=== PATIENT | male | born 1940 | race African-American/Black ===

== ENCOUNTER 2023-11-09 10:26 | Inpatient (IN) | payer MEDICARE, OTHER ==
[~2023-11-09] VITALS: Ht 167.6 cm; Wt 88.0 kg
[2023-11-09] MEDS: FUROSEMIDE 40 MG/4 ML VIAL IV ONE (11:00)
[2023-11-09] MEDS ORDERED: FUROSEMIDE 40 MG/4 ML VIAL ONE (11:00)
[2023-11-09 11:24] LABS: INR 1.17 (0.91-1.10); PROTHROMBIN TIME 12.3 SECS (9.2-11.1)
[2023-11-09 11:29] LABS: ALANINE AMINOTRANSFERASE 134 U/L (12-78); ALBUMIN 2.9 g/dL (3.4-5.0); ALKALINE PHOSPHATASE 187 U/L (46-116); ASPARTATE AMINOTRANSFERASE 90 U/L (15-37); BILIRUBIN,DIRECT 0.1 mg/dL (0.0-0.2); BILIRUBIN,TOTAL 0.3 mg/dL (0.2-1.0); CALCIUM, SERUM 7.8 mg/dL (8.5-10.1); CARBON DIOXIDE 21 mmol/L (21-32); CHLORIDE 111 mmol/L (98-107); CREATININE 4.1 mg/dL (0.6-1.3); GLUCOSE 190 mg/dL (74-106); NT-PRO BNP 4301 pg/mL (0-125); POTASSIUM 5.9 mmol/L (3.5-5.1); SODIUM SERUM 143 mmol/L (136-145); TOTAL PROTEIN, SERUM 6.8 g/dL (6.4-8.2)
[2023-11-09 11:30] LABS: UREA NITROGEN, BLOOD 94 mg/dL (7-18)
[2023-11-09 11:31] LABS: BASOPHILS % (AUTO) 0.1 % (0.0-2.0); EOSINOPHILS # (AUTO) 0.4 K/uL (0.0-0.7); EOSINOPHILS % (AUTO) 6.8 % (0.0-6.0); HEMATOCRIT 25 % (39-51); HEMOGLOBIN 7.9 g/dL (13.5-17.5); LYMPHOCYTES # (AUTO) 0.7 K/uL (0.8-4.8); LYMPHOCYTES % (AUTO) 11.3 % (20.0-44.0); MEAN CORPUSCULAR HEMOGLOBIN 27 PG (26.0-33.0); MEAN CORPUSCULAR HGB CONC 32 g/dl (31.0-36.0); MEAN CORPUSCULAR VOLUME 85 fL (80-96); MONOCYTES # (AUTO) 0.6 K/uL (0.1-1.30); MONOCYTES % (AUTO) 9.4 % (2.0-12.0); NEUTROPHILS # (AUTO) 4.3 K/uL (1.8-8.9); NEUTROPHILS % (AUTO) 72.4 % (43.0-81.0); PLATELET COUNT (AUTO) 167 K/uL (150-450); RED BLOOD CELL COUNT(AUTO) 2.93 MIL/uL (4.5-6.0); RED CELL DISTRIBUTION WIDTH 18.8 % (11.5-15.0); WHITE BLOOD COUNT (AUTO) 5.9 K/uL (4.3-11.0)
[2023-11-09 12:28] LABS: APPEARANCE,URINE CLOUDY (CLEAR); BILIRUBIN,URINE NEGATIVE (NEGATIVE); BLOOD, URINE 3+ Ery/uL (NEGATIVE); COLOR,URINE DARK YELLOW (YELLOW); KETONES,URINE NEGATIVE (NEGATIVE); LEUKOCYTE ESTERASE ,URINE 3+ (NEGATIVE); NITRITE, URINE POSITIVE (NEGATIVE); PH,URINE 8.5 (5.0-8.0); PROTEIN,URINE 2+ mg/dl (NEGATIVE); UGLUCOSE NEGATIVE (NEGATIVE); UROBILINOGEN,URINE 0.2 EU/dL (0.2)
[2023-11-09 12:33] LABS: ADD URINE CULTURE YES; BACTERIA,URINE Many /HPF (None Seen); SQUAMOUS EPITHELIAL CELL,UR Rare /HPF (None Seen); WBC,URINE 51-80 /HPF (0-3)
[2023-11-09] MEDS ORDERED: FOLI0.8T2 PO (13:41)
[2023-11-09] MEDS ORDERED: APIX2.5T PO (13:41)
[2023-11-09] MEDS ORDERED: SITA25TA PO (13:41)
[2023-11-09] MEDS ORDERED: FINA5TAB11 PO (13:41)
[2023-11-09] MEDS ORDERED: AMLO-212 PO (13:41)
[2023-11-09] MEDS ORDERED: PANT20TA17 PO (13:41)
[2023-11-09] MEDS ORDERED: ATOR40TA PO (13:41)
[2023-11-09] MEDS ORDERED: CHOL100043 PO (13:41)
[2023-11-09] MEDS ORDERED: CARV6.252 PO (13:41)
[2023-11-09] MEDS ORDERED: NUT.237L85 PO (13:41)
[2023-11-09] MEDS ORDERED: OXYB5TAB16 PO (13:41)
[2023-11-09] MEDS ORDERED: NATE60TA4 PO (13:41)
[2023-11-09] MEDS ORDERED: FURO20TA4 PO (13:41)
[2023-11-09] MEDS ORDERED: PREG75CA PO (13:41)
[2023-11-09] MEDS ORDERED: POLY17PO29 PO (13:41)
[2023-11-09] MEDS ORDERED: ACET325T53 PO (13:41)
[2023-11-09] MEDS ORDERED: AMIO200T5 PO (13:41)
[2023-11-09] MEDS ORDERED: ESCI5TAB PO (13:41)
[2023-11-09] MEDS ORDERED: ONDANSETRON HCL/PF 4 MG/2 ML VIAL IVP PRN (15:00)
[2023-11-09] MEDS ORDERED: Z GUARD REMEDY 4 OZ OINT TP PRN (15:00)
[2023-11-09] MEDS ORDERED: ACETAMINOPHEN 325 MG TABLET PO PRN (15:00)
[2023-11-09] MEDS ORDERED: SODIUM POLYSTYRENE SULFONATE 15 G/60 ML BOTTLE ONE (15:17)
[2023-11-09] MEDS: SODIUM POLYSTYRENE SULFONATE 15 G/60 ML BOTTLE PO ONE (15:21)
[2023-11-09] MEDS: CEFTRIAXONE 1 G in IV D5W 50 ML IV SCH (16:46)
[2023-11-09] MEDS: ESCITALOPRAM OXALATE (10 MG) 10 MG TABLET PO SCH (16:47)
[2023-11-09] MEDS: OXYBUTYNIN CHLORIDE 5 MG TABLET PO SCH (16:47)
[2023-11-09] MEDS: PREGABALIN 25 MG CAPSULE PO SCH (16:47)
[2023-11-09] MEDS: APIXABAN 2.5 MG TABLET PO SCH (16:49)
[2023-11-09] MEDS: BLOOD SUGAR DIAGNOSTIC 1 EACH STRIP IN SCH (17:25)
[2023-11-09] MEDS: INSULIN REGULAR, HUMAN 100 UNIT/ML 3 ML VIAL SQ PRN (17:25)
[2023-11-09 19:01] LABS: CALCIUM, SERUM 7.8 mg/dL (8.5-10.1); CARBON DIOXIDE 22 mmol/L (21-32); CHLORIDE 111 mmol/L (98-107); CREATININE 4.1 mg/dL (0.6-1.3); GLUCOSE 196 mg/dL (74-106); POTASSIUM 5.6 mmol/L (3.5-5.1); SODIUM SERUM 143 mmol/L (136-145)
[2023-11-09 19:10] LABS: UREA NITROGEN, BLOOD 93 mg/dL (7-18)
[2023-11-09] MEDS: FINASTERIDE (5 MG) 5 MG TABLET PO SCH (21:11)
[2023-11-09] MEDS: ATORVASTATIN 40 MG TABLET PO SCH (21:11)
[2023-11-10] VITALS: BP 140/69; TEMP 98.2; O2SAT 96
[2023-11-10] MEDS: DEXTROSE 50%-WATER 50 ML DISP.SYRIN IV PRN (06:14)
[2023-11-10 06:58] LABS: BASOPHILS % (AUTO) 0.4 % (0.0-2.0); EOSINOPHILS # (AUTO) 0.5 K/uL (0.0-0.7); EOSINOPHILS % (AUTO) 10.2 % (0.0-6.0); HEMATOCRIT 25 % (39-51); LYMPHOCYTES # (AUTO) 0.6 K/uL (0.8-4.8); LYMPHOCYTES % (AUTO) 12.3 % (20.0-44.0); MEAN CORPUSCULAR HEMOGLOBIN 27 PG (26.0-33.0); MEAN CORPUSCULAR HGB CONC 32 g/dl (31.0-36.0); MEAN CORPUSCULAR VOLUME 85 fL (80-96); MONOCYTES # (AUTO) 0.6 K/uL (0.1-1.30); MONOCYTES % (AUTO) 10.8 % (2.0-12.0); NEUTROPHILS # (AUTO) 3.4 K/uL (1.8-8.9); NEUTROPHILS % (AUTO) 66.3 % (43.0-81.0); PLATELET COUNT (AUTO) 170 K/uL (150-450); RED BLOOD CELL COUNT(AUTO) 2.94 MIL/uL (4.5-6.0); RED CELL DISTRIBUTION WIDTH 18.9 % (11.5-15.0); WHITE BLOOD COUNT (AUTO) 5.1 K/uL (4.3-11.0)
[2023-11-10 07:36] LABS: CHOLESTEROL 104 mg/dL (<200); HDL CHOLESTEROL 61 mg/dL (40-60); LDL 34 mg/dL (0-99); THYROID STIMULATING HORMONE 2.894 uIU/mL (0.358-3.74); TRIGLYCERIDES 26 mg/dL (30-150)
[2023-11-10 07:41] LABS: ALANINE AMINOTRANSFERASE 120 U/L (12-78); ALBUMIN 2.9 g/dL (3.4-5.0); ALKALINE PHOSPHATASE 157 U/L (46-116); ASPARTATE AMINOTRANSFERASE 64 U/L (15-37); BILIRUBIN,TOTAL 0.2 mg/dL (0.2-1.0); CALCIUM, SERUM 7.8 mg/dL (8.5-10.1); CARBON DIOXIDE 18 mmol/L (21-32); CHLORIDE 112 mmol/L (98-107); MAGNESIUM 3.4 mg/dL (1.8-2.4); PHOSPHORUS 6.4 mg/dL (2.5-4.9); POTASSIUM 5.7 mmol/L (3.5-5.1); SODIUM SERUM 143 mmol/L (136-145); TOTAL PROTEIN, SERUM 6.9 g/dL (6.4-8.2)
[2023-11-10] MEDS: PANTOPRAZOLE 40 MG TABLET.DR PO SCH (07:41)
[2023-11-10 07:43] LABS: GLUCOSE 44 mg/dL (74-106); UREA NITROGEN, BLOOD 93 mg/dL (7-18)
[2023-11-10 07:54] LABS: IRON, SERUM 45 ug/dl (50-175); TOTAL IRON BINDING CAPACITY 226 ug/dl (250-450)
[2023-11-10] MEDS: POLYETHYLENE GLYCOL 3350 17 GM POWD.PACK PO SCH (08:52)
[2023-11-10] MEDS: CHOLECALCIFEROL 1,000 UNIT TABLET (VIT D3) PO SCH (08:52)
[2023-11-10] MEDS: VIT B CMPLX 3/FA/VIT C/BIOTIN 1 TAB TABLET PO SCH (08:52)
[2023-11-10] MEDS: AMLODIPINE BESYLATE 5 MG TABLET PO SCH (08:53)
[2023-11-10] MEDS: NEPRO VAN 237 ML CAN PO SCH (08:54)
[2023-11-10] MEDS: SODIUM POLYSTYRENE SULFONATE 15 G/60 ML BOTTLE PO ONE (09:36)
[2023-11-10] MEDS: CITRIC ACID/SODIUM CITRATE (BICITRA)15 ML UDC PO SCH (09:36)
[2023-11-10] MEDS: MORPHINE SULFATE INJ 2 MG/ML DISP.SYRIN IV ONE (12:01)
[2023-11-10 20:00] VITALS: BP 152/55; TEMP 98.4; O2SAT 94
[2023-11-10] MEDS: MUPIROCIN OINT 2% 22 GM TUBE NS SCH (20:24)
[2023-11-11] VITALS: BP 150/49; TEMP 98.6; O2SAT 94
[2023-11-11 04:00] VITALS: BP 147/55; TEMP 98.6; O2SAT 94
[2023-11-11 05:54] LABS: BASOPHILS % (AUTO) 0.6 % (0.0-2.0); EOSINOPHILS # (AUTO) 0.5 K/uL (0.0-0.7); EOSINOPHILS % (AUTO) 8.4 % (0.0-6.0); HEMATOCRIT 25 % (39-51); HEMOGLOBIN 7.7 g/dL (13.5-17.5); LYMPHOCYTES # (AUTO) 0.9 K/uL (0.8-4.8); LYMPHOCYTES % (AUTO) 16.1 % (20.0-44.0); MEAN CORPUSCULAR HEMOGLOBIN 27 PG (26.0-33.0); MEAN CORPUSCULAR HGB CONC 31 g/dl (31.0-36.0); MEAN CORPUSCULAR VOLUME 87 fL (80-96); MONOCYTES # (AUTO) 0.8 K/uL (0.1-1.30); MONOCYTES % (AUTO) 13.3 % (2.0-12.0); NEUTROPHILS # (AUTO) 3.5 K/uL (1.8-8.9); NEUTROPHILS % (AUTO) 61.6 % (43.0-81.0); PLATELET COUNT (AUTO) 177 K/uL (150-450); RED BLOOD CELL COUNT(AUTO) 2.87 MIL/uL (4.5-6.0); RED CELL DISTRIBUTION WIDTH 19.2 % (11.5-15.0); WHITE BLOOD COUNT (AUTO) 5.7 K/uL (4.3-11.0)
[2023-11-11 06:04] LABS: CREATINE KINASE, TOTAL 176 U/L (39-308)
[2023-11-11 06:58] LABS: ALANINE AMINOTRANSFERASE 119 U/L (12-78); ALBUMIN 2.7 g/dL (3.4-5.0); ALKALINE PHOSPHATASE 167 U/L (46-116); ASPARTATE AMINOTRANSFERASE 57 U/L (15-37); BILIRUBIN,TOTAL 0.2 mg/dL (0.2-1.0); CALCIUM, SERUM 7.6 mg/dL (8.5-10.1); CARBON DIOXIDE 24 mmol/L (21-32); CHLORIDE 112 mmol/L (98-107); CREATININE 3.7 mg/dL (0.6-1.3); GLUCOSE 87 mg/dL (74-106); PHOSPHORUS 5.4 mg/dL (2.5-4.9); POTASSIUM 4.9 mmol/L (3.5-5.1); SODIUM SERUM 145 mmol/L (136-145); TOTAL PROTEIN, SERUM 6.3 g/dL (6.4-8.2)
[2023-11-11 07:12] LABS: UREA NITROGEN, BLOOD 84 mg/dL (7-18)
[2023-11-11 08:00] VITALS: BP 151/72; TEMP 98.6; O2SAT 94
[2023-11-11 12:00] VITALS: BP 145/62; TEMP 97.7; O2SAT 94
[2023-11-11 12:08] LABS: HEPATITIS B CORE AB, IgM Negative (Negative); HEPATITIS B CORE AB, TOTAL Negative (Negative); HEPATITIS B SURFACE AB Non Reactive (.)
[2023-11-11 16:00] VITALS: BP 149/62; TEMP 97.8; O2SAT 94
[2023-11-11 20:00] VITALS: BP 175/87; TEMP 98.4; O2SAT 95
[2023-11-12] VITALS (7 sets, daily range): BP systolic 136–164; BP diastolic 56–78; TEMP 97.3–98.6; O2SAT 93–98
[2023-11-12 08:06] LABS: PTH, INTACT 117 pg/mL (15-65)
[2023-11-12 12:44] LABS: BASOPHILS % (AUTO) 0.4 % (0.0-2.0); EOSINOPHILS # (AUTO) 0.4 K/uL (0.0-0.7); EOSINOPHILS % (AUTO) 6.8 % (0.0-6.0); HEMATOCRIT 28 % (39-51); HEMOGLOBIN 8.1 g/dL (13.5-17.5); LYMPHOCYTES # (AUTO) 0.8 K/uL (0.8-4.8); LYMPHOCYTES % (AUTO) 12.5 % (20.0-44.0); MEAN CORPUSCULAR HEMOGLOBIN 27 PG (26.0-33.0); MEAN CORPUSCULAR HGB CONC 29 g/dl (31.0-36.0); MEAN CORPUSCULAR VOLUME 91 fL (80-96); MONOCYTES # (AUTO) 0.6 K/uL (0.1-1.30); MONOCYTES % (AUTO) 9.7 % (2.0-12.0); NEUTROPHILS # (AUTO) 4.2 K/uL (1.8-8.9); NEUTROPHILS % (AUTO) 70.6 % (43.0-81.0); PLATELET COUNT (AUTO) 121 K/uL (150-450); RED BLOOD CELL COUNT(AUTO) 3.04 MIL/uL (4.5-6.0)
[2023-11-12 12:52] LABS: CALCIUM, SERUM 7.5 mg/dL (8.5-10.1); CARBON DIOXIDE 25 mmol/L (21-32); CHLORIDE 104 mmol/L (98-107); CREATININE 2.4 mg/dL (0.6-1.3); GLUCOSE 136 mg/dL (74-106); MAGNESIUM 2.7 mg/dL (1.8-2.4); POTASSIUM 5.4 mmol/L (3.5-5.1); SODIUM SERUM 136 mmol/L (136-145); UREA NITROGEN, BLOOD 54 mg/dL (7-18)
[2023-11-13] VITALS: BP 149/63; TEMP 98.6; O2SAT 95
[2023-11-13 04:00] VITALS: BP 148/65; TEMP 98.1; O2SAT 97
[2023-11-13 08:00] VITALS: BP 96/75; TEMP 98.6; O2SAT 98
[2023-11-13 12:00] VITALS: BP 96/75; TEMP 98.6; O2SAT 98
[2023-11-13 13:59] LABS: BASOPHILS % (AUTO) 0.6 % (0.0-2.0); EOSINOPHILS # (AUTO) 0.7 K/uL (0.0-0.7); EOSINOPHILS % (AUTO) 9.2 % (0.0-6.0); HEMATOCRIT 26 % (39-51); HEMOGLOBIN 8.3 g/dL (13.5-17.5); MEAN CORPUSCULAR HEMOGLOBIN 27 PG (26.0-33.0); MEAN CORPUSCULAR HGB CONC 32 g/dl (31.0-36.0); MEAN CORPUSCULAR VOLUME 85 fL (80-96); MONOCYTES # (AUTO) 0.6 K/uL (0.1-1.30); NEUTROPHILS # (AUTO) 5.3 K/uL (1.8-8.9); NEUTROPHILS % (AUTO) 69.2 % (43.0-81.0); PLATELET COUNT (AUTO) 153 K/uL (150-450); RED BLOOD CELL COUNT(AUTO) 3.05 MIL/uL (4.5-6.0); RED CELL DISTRIBUTION WIDTH 19.5 % (11.5-15.0); WHITE BLOOD COUNT (AUTO) 7.7 K/uL (4.3-11.0)
[2023-11-13 14:29] LABS: CALCIUM, SERUM 7.8 mg/dL (8.5-10.1); CARBON DIOXIDE 26 mmol/L (21-32); CHLORIDE 104 mmol/L (98-107); CREATININE 2.4 mg/dL (0.6-1.3); GLUCOSE 158 mg/dL (74-106); MAGNESIUM 2.4 mg/dL (1.8-2.4); PHOSPHORUS 3.7 mg/dL (2.5-4.9); POTASSIUM 4.3 mmol/L (3.5-5.1); SODIUM SERUM 139 mmol/L (136-145); UREA NITROGEN, BLOOD 39 mg/dL (7-18)
[2023-11-13 16:00] VITALS: BP 175/59; TEMP 98.6; O2SAT 95
[2023-11-13] MEDS ORDERED: hydrALAZINE HCL IV 20 MG VIAL IV PRN ×2 (19:00)
[2023-11-13 20:00] VITALS: BP 152/77; TEMP 98.1; O2SAT 100
[2023-11-13] MEDS ORDERED: CEFOTAXIME SODIUM 1 G in IV D5W 50 ML IV SCH (23:30)
[2023-11-13] MEDS: CEFOTAXIME SODIUM 1 G in IV D5W 50 ML IV SCH (23:30)
[2023-11-14 04:00] VITALS: BP 144/75; TEMP 98.6; O2SAT 100
[2023-11-14 06:59] LABS: BASOPHILS % (AUTO) 0.5 % (0.0-2.0); EOSINOPHILS # (AUTO) 0.6 K/uL (0.0-0.7); EOSINOPHILS % (AUTO) 8.2 % (0.0-6.0); HEMATOCRIT 23 % (39-51); HEMOGLOBIN 7.5 g/dL (13.5-17.5); LYMPHOCYTES # (AUTO) 1.1 K/uL (0.8-4.8); LYMPHOCYTES % (AUTO) 14.6 % (20.0-44.0); MEAN CORPUSCULAR HEMOGLOBIN 27 PG (26.0-33.0); MEAN CORPUSCULAR HGB CONC 32 g/dl (31.0-36.0); MEAN CORPUSCULAR VOLUME 83 fL (80-96); MONOCYTES % (AUTO) 12.7 % (2.0-12.0); PLATELET COUNT (AUTO) 142 K/uL (150-450); RED BLOOD CELL COUNT(AUTO) 2.79 MIL/uL (4.5-6.0); RED CELL DISTRIBUTION WIDTH 18.9 % (11.5-15.0); WHITE BLOOD COUNT (AUTO) 7.8 K/uL (4.3-11.0)
[2023-11-14 07:09] LABS: CALCIUM, SERUM 8.1 mg/dL (8.5-10.1); CARBON DIOXIDE 26 mmol/L (21-32); CHLORIDE 107 mmol/L (98-107); CREATININE 1.9 mg/dL (0.6-1.3); GLUCOSE 77 mg/dL (74-106); MAGNESIUM 2.3 mg/dL (1.8-2.4); PHOSPHORUS 3.3 mg/dL (2.5-4.9); POTASSIUM 3.9 mmol/L (3.5-5.1); SODIUM SERUM 142 mmol/L (136-145); UREA NITROGEN, BLOOD 28 mg/dL (7-18)
[2023-11-14] MEDS: IV D5/ 0.9% NACL 1,000 ML IV PRN (09:19)
[2023-11-14] MEDS: CEFTAZIDIME 1 G in IV D5W 50 ML IV SCH (09:27)
[2023-11-14 10:07] LABS: *SPE ALBUMIN 2.9 g/dL (2.9-4.4); *SPE ALPHA-1-GLOBULIN 0.2 g/dL (0.0-0.4); *SPE ALPHA-2-GLOBULIN 0.7 g/dL (0.4-1.0); *SPE BETA GLOBULIN 0.8 g/dL (0.7-1.3); *SPE GLOBULIN, TOTAL 2.9 g/dL (2.2-3.9); *SPE M-SPIKE Not Observed g/dL (Not Observed); *SPE PROTEIN TOTAL 5.8 g/dL (6.0-8.5); *SPEGAMMA GLOBULIN 1.2 g/dL (0.4-1.8)
[2023-11-14 10:28] LABS: INR 1.23 (0.91-1.10); PARTIAL THROMBOPLASTIN TIME 38.7 SEC (24.3-34.3); PROTHROMBIN TIME 12.9 SECS (9.2-11.1)
[2023-11-14 12:00] VITALS: BP 177/90; TEMP 98.6; O2SAT 98
[2023-11-14] MEDS ORDERED: LIDOCAINE HCL/MPF 1% 30 ML VIAL IJ ONE (12:36)
[2023-11-14] MEDS ORDERED: HEPARIN SODIUM, PORCINE 1,000 UNIT/ML VIAL ONE (12:36)
[2023-11-14] MEDS ORDERED: IV SET PRIMARY PUMP SET 1 EA INFUS.SET MC ONE (13:00)
[2023-11-14] MEDS: CEFAZOLIN 2 GM in IV D5W 100 ML IV ONE (13:00)
[2023-11-14] MEDS: hydrALAZINE HCL IV 20 MG VIAL IV PRN (18:14)
[2023-11-14 20:00] VITALS: BP 160/69; TEMP 98.6; O2SAT 96
[2023-11-14] MEDS: ANCEF 1 GM/50 ML D5W IV SCH (20:55)
[2023-11-15 04:00] VITALS: BP 154/72; TEMP 98.4; O2SAT 97
[2023-11-15 07:22] LABS: BASOPHILS % (AUTO) 0.4 % (0.0-2.0); EOSINOPHILS # (AUTO) 0.7 K/uL (0.0-0.7); EOSINOPHILS % (AUTO) 10.5 % (0.0-6.0); HEMATOCRIT 22 % (39-51); HEMOGLOBIN 7.1 g/dL (13.5-17.5); LYMPHOCYTES # (AUTO) 0.8 K/uL (0.8-4.8); LYMPHOCYTES % (AUTO) 11.4 % (20.0-44.0); MEAN CORPUSCULAR HEMOGLOBIN 27 PG (26.0-33.0); MEAN CORPUSCULAR HGB CONC 32 g/dl (31.0-36.0); MEAN CORPUSCULAR VOLUME 83 fL (80-96); MONOCYTES # (AUTO) 0.8 K/uL (0.1-1.30); MONOCYTES % (AUTO) 10.8 % (2.0-12.0); NEUTROPHILS # (AUTO) 4.7 K/uL (1.8-8.9); NEUTROPHILS % (AUTO) 66.9 % (43.0-81.0); PLATELET COUNT (AUTO) 126 K/uL (150-450); RED BLOOD CELL COUNT(AUTO) 2.68 MIL/uL (4.5-6.0)
[2023-11-15 07:44] LABS: ALANINE AMINOTRANSFERASE 39 U/L (12-78); ALBUMIN 2.5 g/dL (3.4-5.0); ALKALINE PHOSPHATASE 131 U/L (46-116); ASPARTATE AMINOTRANSFERASE 23 U/L (15-37); BILIRUBIN,DIRECT 0.1 mg/dL (0.0-0.2); BILIRUBIN,TOTAL 0.3 mg/dL (0.2-1.0); CARBON DIOXIDE 26 mmol/L (21-32); CHLORIDE 108 mmol/L (98-107); CREATININE 2.1 mg/dL (0.6-1.3); GLUCOSE 127 mg/dL (74-106); MAGNESIUM 2.2 mg/dL (1.8-2.4); PHOSPHORUS 3.5 mg/dL (2.5-4.9); POTASSIUM 3.9 mmol/L (3.5-5.1); SODIUM SERUM 143 mmol/L (136-145); UREA NITROGEN, BLOOD 28 mg/dL (7-18)
[2023-11-15] MEDS: NEPRO VAN 237 ML CAN PO SCH (08:00)
[2023-11-15] MEDS: BENAZEPRIL HCL 10 MG TABLET PO SCH (08:12)
[2023-11-15] MEDS: AMLODIPINE BESYLATE 5 MG TABLET PO SCH (08:13)
[2023-11-15 12:00] VITALS: BP 152/63; TEMP 97.8; O2SAT 95
[2023-11-15 20:00] VITALS: BP 148/55; TEMP 98.8; O2SAT 94
[2023-11-16 04:00] VITALS: BP_SYST 134; BP_SYST 148; BP_DIAS 55; BP_DIAS 59; TEMP 98.2; TEMP 98.8; O2SAT 94; O2SAT 95
[2023-11-16 12:00] VITALS: BP 144/65; TEMP 98.3; O2SAT 95
[2023-11-16 20:00] VITALS: BP 143/65; TEMP 99; O2SAT 98
[2023-11-17] VITALS (8 sets, daily range): BP systolic 130–153; BP diastolic 57–77; TEMP 98–99.2; O2SAT 94–98
[2023-11-17 07:36] LABS: BASOPHILS % (AUTO) 0.6 % (0.0-2.0); EOSINOPHILS # (AUTO) 0.7 K/uL (0.0-0.7); EOSINOPHILS % (AUTO) 11.4 % (0.0-6.0); LYMPHOCYTES % (AUTO) 17.1 % (20.0-44.0); MEAN CORPUSCULAR HEMOGLOBIN 26 PG (26.0-33.0); MEAN CORPUSCULAR HGB CONC 32 g/dl (31.0-36.0); MEAN CORPUSCULAR VOLUME 83 fL (80-96); MONOCYTES # (AUTO) 0.7 K/uL (0.1-1.30); MONOCYTES % (AUTO) 11.6 % (2.0-12.0); NEUTROPHILS # (AUTO) 3.5 K/uL (1.8-8.9); NEUTROPHILS % (AUTO) 59.3 % (43.0-81.0); PLATELET COUNT (AUTO) 106 K/uL (150-450); RED CELL DISTRIBUTION WIDTH 18.6 % (11.5-15.0); WHITE BLOOD COUNT (AUTO) 5.9 K/uL (4.3-11.0)
[2023-11-17 07:50] LABS: HEMOGLOBIN 6.3 g/dL (13.5-17.5)
[2023-11-17 07:51] LABS: HEMATOCRIT 20 % (39-51)
[2023-11-17 11:32] LABS: ANISOCYTOSIS 1+; BASOPHILS % (MANUAL) 0 % (0.0-2.0); EOSINOPHILS % (MANUAL) 8 % (0-4); HYPOCHROMASIA 1+; LYMPHOCYTES % (MANUAL) 15 % (16-48); MONOCYTES % (MANUAL) 12 % (0-11.0); NEUTROPHILS % (MANUAL) 65 (42-76); PLATELET ESTIMATE DECREASED
[2023-11-18 00:11] VITALS: BP 142/63; TEMP 98.4
[2023-11-18 01:25] VITALS: BP 141/65; TEMP 98.4
[2023-11-18 04:00] VITALS: BP 154/60; TEMP 97.5; O2SAT 96
[2023-11-18 07:28] LABS: BASOPHILS % (AUTO) 0.7 % (0.0-2.0); EOSINOPHILS # (AUTO) 0.9 K/uL (0.0-0.7); EOSINOPHILS % (AUTO) 11.4 % (0.0-6.0); HEMATOCRIT 26 % (39-51); HEMOGLOBIN 8.5 g/dL (13.5-17.5); LYMPHOCYTES # (AUTO) 1.3 K/uL (0.8-4.8); LYMPHOCYTES % (AUTO) 17.4 % (20.0-44.0); MEAN CORPUSCULAR HEMOGLOBIN 28 PG (26.0-33.0); MEAN CORPUSCULAR HGB CONC 33 g/dl (31.0-36.0); MEAN CORPUSCULAR VOLUME 85 fL (80-96); MONOCYTES % (AUTO) 12.6 % (2.0-12.0); NEUTROPHILS # (AUTO) 4.4 K/uL (1.8-8.9); NEUTROPHILS % (AUTO) 57.9 % (43.0-81.0); PLATELET COUNT (AUTO) 122 K/uL (150-450); RED BLOOD CELL COUNT(AUTO) 3.08 MIL/uL (4.5-6.0); RED CELL DISTRIBUTION WIDTH 18.5 % (11.5-15.0); WHITE BLOOD COUNT (AUTO) 7.6 K/uL (4.3-11.0)
[2023-11-18 08:00] VITALS: BP 158/81; TEMP 97.9; O2SAT 97
[2023-11-18 16:00] VITALS: BP 144/71; TEMP 97.8; TEMP 98.1; O2SAT 98
[2023-11-18 20:00] VITALS: BP 168/72; TEMP 97.9; O2SAT 100
[2023-11-19 04:00] VITALS: BP 153/65; TEMP 97.5; O2SAT 100
[2023-11-19 08:00] VITALS: BP 156/64; TEMP 98.1; O2SAT 98
[2023-11-19 08:41] VITALS: BP 156/64
[2023-11-19] MEDS ORDERED: Benazepril Hcl PO (13:38)
== END 2023-11-19 15:59 | disposition home health service (06) | DRG 291 ==
LOC: ER 10:30 → TELE1 15:24 → MEDSG1 11-13 10:36
PROVIDERS: ADMIT Nurse Practitioner Family; ATTEND Nurse Practitioner Acute Care
PROC: 5A1D70Z Performance of Urinary Filtration, Intermittent, Less than 6 Hours Per Day (ICD-10-PCS; 2023-11-10)
PROC: 05HM33Z Insertion of Infusion Device into Right Internal Jugular Vein, Percutaneous Approach (ICD-10-PCS; principal; 2023-11-11)
PROC: B543ZZA Ultrasonography of Right Jugular Veins, Guidance (ICD-10-PCS; 2023-11-11)
PROC: 05H933Z Insertion of Infusion Device into Right Brachial Vein, Percutaneous Approach (ICD-10-PCS; 2023-11-11)
PROC: 0JH63XZ Insertion of Tunneled Vascular Access Device into Chest Subcutaneous Tissue and Fascia, Percutaneous Approach (ICD-10-PCS; 2023-11-14)
PROC: 05HM33Z Insertion of Infusion Device into Right Internal Jugular Vein, Percutaneous Approach (ICD-10-PCS; 2023-11-14)
PROC: B543ZZA Ultrasonography of Right Jugular Veins, Guidance (ICD-10-PCS; 2023-11-14)
PROC: 30233N1 Transfusion of Nonautologous Red Blood Cells into Peripheral Vein, Percutaneous Approach (ICD-10-PCS; 2023-11-17)
DX: I13.2 Hypertensive heart and chronic kidney disease with heart failure and with stage 5 chronic kidney disease, or end stage renal disease (principal); I50.33 Acute on chronic diastolic (congestive) heart failure; U07.1 COVID-19; N18.6 End stage renal disease; N17.9 Acute kidney failure, unspecified; N39.0 Urinary tract infection, site not specified; I69.354 Hemiplegia and hemiparesis following cerebral infarction affecting left non-dominant side; E11.22 Type 2 diabetes mellitus with diabetic chronic kidney disease; E78.5 Hyperlipidemia, unspecified; E11.51 Type 2 diabetes mellitus with diabetic peripheral angiopathy without gangrene; I25.10 Atherosclerotic heart disease of native coronary artery without angina pectoris; G89.0 Central pain syndrome; M62.50 Muscle wasting and atrophy, not elsewhere classified, unspecified site; Z99.2 Dependence on renal dialysis; Z87.891 Personal history of nicotine dependence; Z74.01 Bed confinement status; G47.33 Obstructive sleep apnea (adult) (pediatric); K21.9 Gastro-esophageal reflux disease without esophagitis; N40.0 Benign prostatic hyperplasia without lower urinary tract symptoms; R74.01 Elevation of levels of liver transaminase levels; E83.39 Other disorders of phosphorus metabolism; D63.1 Anemia in chronic kidney disease; E66.01 Morbid (severe) obesity due to excess calories; E87.5 Hyperkalemia; I48.91 Unspecified atrial fibrillation; Z79.01 Long term (current) use of anticoagulants; Z98.62 Peripheral vascular angioplasty status; N25.0 Renal osteodystrophy; Z68.31 Body mass index [BMI] 31.0-31.9, adult; S31.31XA Laceration without foreign body of scrotum and testes, initial encounter; X58.XXXA Exposure to other specified factors, initial encounter; Y92.9 Unspecified place or not applicable; B96.89 Other specified bacterial agents as the cause of diseases classified elsewhere; Z79.84 Long term (current) use of oral hypoglycemic drugs; Z79.899 Other long term (current) drug therapy
CPT/HCPCS: 36415; 70450-TC; 71045-TC; 76700-TC; 80048-TC; 80053-TC; 80061-TC; 80076-TC; 81001; 82550-TC; 82607-TC; 82962-TC; 83540-TC; 83735-TC; 83880; 83970; 84100-TC; 84155; 84165; 84443-TC; 84484-TC; 85025-TC; 85378-TC; 85610-TC; 85730-TC; 86140-TC; 86704; 86705; 86706; 86803; 86850-TC; 87081-TC; 87086-TC; 87340; 90935-TC; 97112-TC; 97116-TC; 97530-TC; A4223; A6253; A6403; G0378; J0360; J0690; J0696; J0698; J0713; J1644; J1815; J1940; J3490; J7030; J7042; J7050; J7060; P9016

== ENCOUNTER 2024-02-15 10:17 | Day surgery (SDC) | payer MEDICARE, OTHER ==
[~2024-02-15 10:17] MED LIST: ACET325T53 PO; AMLO-212 PO; APIX2.5T PO; ATOR40TA PO; Benazepril Hcl PO; CHOL100043 PO; ESCI5TAB PO; FINA5TAB11 PO; FOLI0.8T2 PO; NUT.237L85 PO; OXYB5TAB16 PO; PANT20TA17 PO; POLY17PO29 PO; PREG75CA PO; SITA25TA PO
[2024-02-15] MEDS ORDERED: FENTANYL PF 100MCG/2ML AMPUL ONE (12:31)
[2024-02-15] MEDS ORDERED: MIDAZOLAM HCL 2 MG/2ML VIAL ONE (12:31)
[2024-02-15] MEDS ORDERED: ROPIVACAINE HCL 0.5% 5 MG/ML 30ML VIAL ONE ×2 (12:33→12:40)
[2024-02-15] MEDS ORDERED: CELLULOSE,OXIDIZED 1 EA PACK MC ONE (12:34)
[2024-02-15] MEDS ORDERED: CELLULOSE,OXIDIZED 1 EACH EACH MC ONE (12:34)
[2024-02-15] MEDS ORDERED: BUPIVACAINE 0.5 % PF 150 MG/30 ML VIAL ONE (12:34)
[2024-02-15] MEDS ORDERED: LIDOCAINE 1% INJ 50 ML MDV IJ ONE (12:40)
[2024-02-15] MEDS ORDERED: HEPARIN SODIUM, PORCINE 5000 UNITS/1 ML VIAL ONE (13:40)
[2024-02-15 13:55] LABS: CARBON DIOXIDE 31 mmol/L (21-32); CHLORIDE 104 mmol/L (98-107); CREATININE 3.1 mg/dL (0.6-1.3); GLUCOSE 110 mg/dL (74-106); SODIUM SERUM 139 mmol/L (136-145); UREA NITROGEN, BLOOD 39 mg/dL (7-18)
[2024-02-15] MEDS ORDERED: HEPARIN SODIUM, PORCINE 1,000 UNIT/ML VIAL ONE (15:00)
== END 2024-02-15 17:00 ==
LOC: DS 10:17
PROVIDERS: ATTEND Surgery Vascular Surgery
DX: E11.22 Type 2 diabetes mellitus with diabetic chronic kidney disease (principal); D64.9 Anemia, unspecified; K21.9 Gastro-esophageal reflux disease without esophagitis; J44.9 Chronic obstructive pulmonary disease, unspecified; I25.10 Atherosclerotic heart disease of native coronary artery without angina pectoris; I13.2 Hypertensive heart and chronic kidney disease with heart failure and with stage 5 chronic kidney disease, or end stage renal disease; I50.9 Heart failure, unspecified; N18.6 End stage renal disease; Z99.2 Dependence on renal dialysis; E78.5 Hyperlipidemia, unspecified; F32.9 Major depressive disorder, single episode, unspecified; Z98.890 Other specified postprocedural states; Z79.899 Other long term (current) drug therapy
CPT/HCPCS: 36415; 36830; 80048; A4565; A6209; C1768; J0690; J1644; J2250; J2704; J2795; J3010; J3490; J7030

== ENCOUNTER 2024-04-27 12:38 | Inpatient (IN) | payer MEDICARE, OTHER ==
[~2024-04-27] VITALS: Ht 167.6 cm; Wt 73.9 kg
[2024-04-27 13:43] LABS: BASOPHILS % (AUTO) 0.2 % (0.0-2.0); EOSINOPHILS # (AUTO) 0.3 K/uL (0.0-0.7); EOSINOPHILS % (AUTO) 4.3 % (0.0-6.0); HEMATOCRIT 36 % (39-51); HEMOGLOBIN 11.3 g/dL (13.5-17.5); LYMPHOCYTES # (AUTO) 1.6 K/uL (0.8-4.8); MEAN CORPUSCULAR HEMOGLOBIN 30 PG (26.0-33.0); MEAN CORPUSCULAR HGB CONC 32 g/dl (31.0-36.0); MEAN CORPUSCULAR VOLUME 93 fL (80-96); MONOCYTES # (AUTO) 0.7 K/uL (0.1-1.30); MONOCYTES % (AUTO) 9.1 % (2.0-12.0); NEUTROPHILS # (AUTO) 4.9 K/uL (1.8-8.9); NEUTROPHILS % (AUTO) 65.4 % (43.0-81.0); PLATELET COUNT (AUTO) 192 K/uL (150-450); RED BLOOD CELL COUNT(AUTO) 3.83 MIL/uL (4.5-6.0); WHITE BLOOD COUNT (AUTO) 7.5 K/uL (4.3-11.0)
[2024-04-27 13:55] LABS: INR 1.12 (0.91-1.10); PARTIAL THROMBOPLASTIN TIME 33.6 SEC (24.3-34.3); PROTHROMBIN TIME 11.8 SECS (9.2-11.1)
[2024-04-27 14:01] LABS: CALCIUM, SERUM 8.1 mg/dL (8.5-10.1); CARBON DIOXIDE 27 mmol/L (21-32); CHLORIDE 104 mmol/L (98-107); CREATININE 2.8 mg/dL (0.6-1.3); GLUCOSE 150 mg/dL (74-106); POTASSIUM 5.1 mmol/L (3.5-5.1); SODIUM SERUM 136 mmol/L (136-145); UREA NITROGEN, BLOOD 37 mg/dL (7-18)
[2024-04-27] MEDS ORDERED: FURO-145 PO (14:56)
[2024-04-27] MEDS ORDERED: BENA20TA9 PO (14:56)
[2024-04-27] MEDS ORDERED: LOPE-195 PO (14:56)
[2024-04-27] MEDS ORDERED: CARV6.25 PO (14:56)
[2024-04-27] MEDS ORDERED: NATE60TA4 PO (14:57)
[2024-04-27] MEDS ORDERED: CHOL200059 PO (14:57)
[2024-04-27 15:39] VITALS: O2SAT 97
[2024-04-27] MEDS ORDERED: ACETAMINOPHEN 325 MG TABLET PO PRN (16:30)
[2024-04-27] MEDS ORDERED: MAG HYDROX/AL HYDROX/SIMETH 30 ML UDC PO PRN (16:30)
[2024-04-27] MEDS ORDERED: Z GUARD REMEDY 4 OZ OINT TP PRN (16:30)
[2024-04-27] MEDS ORDERED: LOPERAMIDE HCL (2 MG CAP) 2 MG CAPSULE PO PRN (16:30)
[2024-04-27] MEDS ORDERED: MAGNESIUM HYDROXIDE 30 ML UDC PO PRN (16:30)
[2024-04-27] MEDS ORDERED: ONDANSETRON HCL/PF 4 MG/2 ML VIAL IVP PRN (16:30)
[2024-04-27] MEDS: APIXABAN 2.5 MG TABLET PO SCH (17:00)
[2024-04-27] MEDS: NATEGLINIDE 60 MG TABLET PO SCH (17:00)
[2024-04-27] MEDS: CARVEDILOL 6.25 MG TABLET PO SCH (17:00)
[2024-04-27] MEDS: OXYBUTYNIN CHLORIDE 5 MG TABLET PO SCH (17:00)
[2024-04-27] MEDS ORDERED: ROCURONIUM BROMIDE 50 MG/5 ML ONE (17:02)
[2024-04-27] MEDS ORDERED: VASOPRESSIN INJ 20 UNIT/ML VIAL ONE (17:02)
[2024-04-27] MEDS ORDERED: FENTANYL PF 100MCG/2ML AMPUL ONE (17:02)
[2024-04-27] MEDS ORDERED: FAMOTIDINE/PF INJ 20 MG/2 ML VIAL IV ONE (17:02)
[2024-04-27] MEDS ORDERED: LIDOCAINE HCL/MPF 1% 30 ML VIAL IJ ONE (17:04)
[2024-04-27] MEDS ORDERED: ANESTHESIA TRAY IN PYXIS 1 EA TRAY MC ONE (17:04)
[2024-04-27] MEDS ORDERED: IOHEXOL 50 ML IV ONE (17:05)
[2024-04-27] MEDS ORDERED: HEPARIN SODIUM, PORCINE 1,000 UNIT/ML VIAL ONE (17:05)
[2024-04-27] MEDS: PREGABALIN 25 MG CAPSULE PO SCH (19:00)
[2024-04-27] MEDS ORDERED: ROPIVACAINE HCL 0.5% 5 MG/ML 30ML VIAL ONE (19:06)
[2024-04-27 20:20] VITALS: BP 141/113; TEMP 97.5; O2SAT 98
[2024-04-27 20:31] LABS: CALCIUM, SERUM 7.6 mg/dL (8.5-10.1); CARBON DIOXIDE 29 mmol/L (21-32); CHLORIDE 107 mmol/L (98-107); CREATININE 2.8 mg/dL (0.6-1.3); GLUCOSE 120 mg/dL (74-106); POTASSIUM 4.9 mmol/L (3.5-5.1); SODIUM SERUM 143 mmol/L (136-145); UREA NITROGEN, BLOOD 37 mg/dL (7-18)
[2024-04-27] MEDS: IV 1/2NS 1000 ML 1,000 ML IV PRN (21:14)
[2024-04-27] MEDS: FINASTERIDE (5 MG) 5 MG TABLET PO SCH (22:00)
[2024-04-27 22:30] VITALS: BP 140/71; TEMP 97.9; O2SAT 100
[2024-04-28] MEDS: ANCEF 1 GM/50 ML D5W IV SCH (01:57)
[2024-04-28 06:00] VITALS: BP 120/83; TEMP 97.9; O2SAT 98
[2024-04-28 06:55] LABS: BASOPHILS % (AUTO) 0.3 % (0.0-2.0); EOSINOPHILS # (AUTO) 0.2 K/uL (0.0-0.7); EOSINOPHILS % (AUTO) 3.2 % (0.0-6.0); HEMATOCRIT 30 % (39-51); HEMOGLOBIN 9.9 g/dL (13.5-17.5); LYMPHOCYTES # (AUTO) 1.2 K/uL (0.8-4.8); LYMPHOCYTES % (AUTO) 16.9 % (20.0-44.0); MEAN CORPUSCULAR HEMOGLOBIN 30 PG (26.0-33.0); MEAN CORPUSCULAR HGB CONC 33 g/dl (31.0-36.0); MEAN CORPUSCULAR VOLUME 91 fL (80-96); MONOCYTES # (AUTO) 0.7 K/uL (0.1-1.30); MONOCYTES % (AUTO) 8.9 % (2.0-12.0); NEUTROPHILS # (AUTO) 5.2 K/uL (1.8-8.9); NEUTROPHILS % (AUTO) 70.7 % (43.0-81.0); PLATELET COUNT (AUTO) 196 K/uL (150-450); RED CELL DISTRIBUTION WIDTH 16.8 % (11.5-15.0); WHITE BLOOD COUNT (AUTO) 7.4 K/uL (4.3-11.0)
[2024-04-28 07:30] VITALS: BP 137/53; TEMP 97.9; O2SAT 100
[2024-04-28 07:31] LABS: CALCIUM, SERUM 7.5 mg/dL (8.5-10.1); CARBON DIOXIDE 24 mmol/L (21-32); CHLORIDE 105 mmol/L (98-107); CREATININE 2.7 mg/dL (0.6-1.3); GLUCOSE 175 mg/dL (74-106); MAGNESIUM 2.2 mg/dL (1.8-2.4); PHOSPHORUS 4.5 mg/dL (2.5-4.9); SODIUM SERUM 140 mmol/L (136-145); UREA NITROGEN, BLOOD 38 mg/dL (7-18)
[2024-04-28] MEDS ORDERED: CLOP75TA15 PO (08:21)
[2024-04-28] MEDS: BENAZEPRIL HCL 20 MG TABLET PO SCH (09:00)
[2024-04-28] MEDS: LINAGLIPTIN 5 MG TABLET PO SCH (09:03)
[2024-04-28] MEDS: CLOPIDOGREL BISULFATE 75 MG TABLET PO SCH (09:03)
[2024-04-28] MEDS: FUROSEMIDE 20 MG TABLET PO SCH (09:03)
[2024-04-28 16:22] VITALS: BP 130/53
== END 2024-04-28 19:20 | DRG 252 ==
LOC: ER 12:42 → MED 16:47 → TELE 20:44
PROVIDERS: ADMIT Internal Medicine; ATTEND Internal Medicine
PROC: 05C83ZZ Extirpation of Matter from Left Axillary Vein, Percutaneous Approach (ICD-10-PCS; principal; 2024-04-27)
PROC: 05783ZZ Dilation of Left Axillary Vein, Percutaneous Approach (ICD-10-PCS; 2024-04-27)
PROC: B51WYZZ Fluoroscopy of Dialysis Shunt/Fistula using Other Contrast (ICD-10-PCS; 2024-04-27)
PROC: B518YZZ Fluoroscopy of Superior Vena Cava using Other Contrast (ICD-10-PCS; 2024-04-27)
PROC: 06HY33Z Insertion of Infusion Device into Lower Vein, Percutaneous Approach (ICD-10-PCS; 2024-04-27)
PROC: 5A1D70Z Performance of Urinary Filtration, Intermittent, Less than 6 Hours Per Day (ICD-10-PCS; 2024-04-28)
DX: T82.510A Breakdown (mechanical) of surgically created arteriovenous fistula, initial encounter (principal); N18.6 End stage renal disease; I13.2 Hypertensive heart and chronic kidney disease with heart failure and with stage 5 chronic kidney disease, or end stage renal disease; I50.32 Chronic diastolic (congestive) heart failure; I69.354 Hemiplegia and hemiparesis following cerebral infarction affecting left non-dominant side; T82.868A Thrombosis due to vascular prosthetic devices, implants and grafts, initial encounter; E11.22 Type 2 diabetes mellitus with diabetic chronic kidney disease; Z99.2 Dependence on renal dialysis; Y92.099 Unspecified place in other non-institutional residence as the place of occurrence of the external cause; Y83.2 Surgical operation with anastomosis, bypass or graft as the cause of abnormal reaction of the patient, or of later complication, without mention of misadventure at the time of the procedure; Y71.2 Prosthetic and other implants, materials and accessory cardiovascular devices associated with adverse incidents; E11.51 Type 2 diabetes mellitus with diabetic peripheral angiopathy without gangrene; D64.9 Anemia, unspecified; E03.9 Hypothyroidism, unspecified; E66.01 Morbid (severe) obesity due to excess calories; Z68.26 Body mass index [BMI] 26.0-26.9, adult; E78.5 Hyperlipidemia, unspecified; G47.33 Obstructive sleep apnea (adult) (pediatric); I25.10 Atherosclerotic heart disease of native coronary artery without angina pectoris; I48.91 Unspecified atrial fibrillation; M89.8X9 Other specified disorders of bone, unspecified site; N40.0 Benign prostatic hyperplasia without lower urinary tract symptoms; Z79.01 Long term (current) use of anticoagulants; Z79.84 Long term (current) use of oral hypoglycemic drugs; K21.9 Gastro-esophageal reflux disease without esophagitis; Z87.19 Personal history of other diseases of the digestive system; Z74.01 Bed confinement status; M62.50 Muscle wasting and atrophy, not elsewhere classified, unspecified site; F32.A Depression, unspecified; Z79.899 Other long term (current) drug therapy
CPT/HCPCS: 36415; 71045-TC; 80048-TC; 83735-TC; 84100-TC; 85025-TC; 85730-TC; 86850-TC; 90935-TC; 93930-TC; A4223; G0378; J0690; J1644; J2405; J2704; J2765; J2795; J3010; J3490; J7030; J7060; Q9967

== ENCOUNTER 2024-06-25 18:42 | Emergency (ER) | payer MEDICARE, OTHER ==
[~2024-06-25] VITALS: Ht 170.2 cm; Wt 72.6 kg
[~2024-06-25 18:42] MED LIST changes: -ACET325T53 PO; -AMLO-212 PO; -ATOR40TA PO; +BENA20TA9 PO; -Benazepril Hcl PO; +CARV6.25 PO; -CHOL100043 PO; +CHOL200059 PO; +CLOP75TA15 PO; -ESCI5TAB PO; +FURO-145 PO; +LOPE-195 PO; +NATE60TA4 PO; -POLY17PO29 PO
[2024-06-25] MEDS ORDERED: ACET-73 PO (19:29)
[2024-06-25] MEDS ORDERED: ACETAMINOPHEN ES 500 MG TABLET ONE (20:49)
[2024-06-25] MEDS: ACETAMINOPHEN ES 500 MG TABLET PO ONE (20:51)
[2024-06-25 21:14] VITALS: BP 133/88; TEMP 98; O2SAT 97
== END 2024-06-26 02:30 | disposition home or self-care (01) ==
LOC: ER 18:47
DX: M79.89 Other specified soft tissue disorders (principal); M79.605 Pain in left leg; I13.2 Hypertensive heart and chronic kidney disease with heart failure and with stage 5 chronic kidney disease, or end stage renal disease; E11.22 Type 2 diabetes mellitus with diabetic chronic kidney disease; N18.6 End stage renal disease; I50.9 Heart failure, unspecified; F32.A Depression, unspecified; E78.5 Hyperlipidemia, unspecified; I25.10 Atherosclerotic heart disease of native coronary artery without angina pectoris; E11.51 Type 2 diabetes mellitus with diabetic peripheral angiopathy without gangrene; G81.94 Hemiplegia, unspecified affecting left nondominant side; Z79.01 Long term (current) use of anticoagulants; Z86.718 Personal history of other venous thrombosis and embolism; Z86.73 Personal history of transient ischemic attack (TIA), and cerebral infarction without residual deficits; Z87.09 Personal history of other diseases of the respiratory system; Z87.438 Personal history of other diseases of male genital organs; Z87.448 Personal history of other diseases of urinary system; Z87.39 Personal history of other diseases of the musculoskeletal system and connective tissue
CPT/HCPCS: 93971-TC

== ENCOUNTER 2024-12-20 18:10 | Inpatient (IN) | payer MEDICARE, OTHER ==
[~2024-12-20] VITALS: Ht 167.6 cm; Wt 75.7 kg
[~2024-12-20 18:10] MED LIST changes: +ACET-73 PO; -CLOP75TA15 PO; -OXYB5TAB16 PO; -PANT20TA17 PO
[2024-12-20 18:48] LABS: BASOPHILS % (AUTO) 0.4 % (0.0-2.0); EOSINOPHILS # (AUTO) 0.3 K/uL (0.0-0.7); HEMATOCRIT 30 % (39-51); LYMPHOCYTES # (AUTO) 1.4 K/uL (0.8-4.8); MEAN CORPUSCULAR HEMOGLOBIN 30 PG (26.0-33.0); MEAN CORPUSCULAR HGB CONC 34 g/dl (31.0-36.0); MEAN CORPUSCULAR VOLUME 90 fL (80-96); MONOCYTES # (AUTO) 0.7 K/uL (0.1-1.30); NEUTROPHILS # (AUTO) 4.2 K/uL (1.8-8.9); NEUTROPHILS % (AUTO) 64.6 % (43.0-81.0); PLATELET COUNT (AUTO) 267 K/uL (150-450); RED BLOOD CELL COUNT(AUTO) 3.32 MIL/uL (4.5-6.0); RED CELL DISTRIBUTION WIDTH 14.9 % (11.5-15.0); WHITE BLOOD COUNT (AUTO) 6.5 K/uL (4.3-11.0)
[2024-12-20 18:55] LABS: CALCIUM, SERUM 7.7 mg/dL (8.5-10.1); CREATININE 6.6 mg/dL (0.6-1.3); POTASSIUM 4.9 mmol/L (3.5-5.1)
[2024-12-20 19:01] LABS: INR 1.08 (0.91-1.10); PARTIAL THROMBOPLASTIN TIME 31.4 SEC (24.3-34.3); PROTHROMBIN TIME 11.4 SECS (9.2-11.1)
[2024-12-20] MEDS ORDERED: Z GUARD REMEDY 4 OZ OINT TP PRN (20:00)
[2024-12-20] MEDS ORDERED: ONDANSETRON HCL/PF 4 MG/2 ML VIAL IVP PRN (20:00)
[2024-12-20] MEDS ORDERED: MAGNESIUM HYDROXIDE 30 ML UDC PO PRN (20:00)
[2024-12-20] MEDS ORDERED: MAG HYDROX/AL HYDROX/SIMETH 30 ML UDC PO PRN (20:00)
[2024-12-20] MEDS ORDERED: ACETAMINOPHEN 325 MG TABLET PO PRN (20:00)
[2024-12-20 22:15] VITALS: BP 116/59; TEMP 97.3; O2SAT 97
[2024-12-20] MEDS: ACETAMINOPHEN ES 500 MG TABLET PO ONE (22:50)
[2024-12-20] MEDS: DOCUSATE SODIUM 100 MG CAPSULE PO SCH (22:50)
[2024-12-20] MEDS ORDERED: DEXTROSE 50%-WATER 50 ML DISP.SYRIN IV PRN (23:30)
[2024-12-21 06:23] LABS: BASOPHILS % (AUTO) 0.4 % (0.0-2.0); EOSINOPHILS # (AUTO) 0.3 K/uL (0.0-0.7); EOSINOPHILS % (AUTO) 4.7 % (0.0-6.0); HEMATOCRIT 26 % (39-51); HEMOGLOBIN 8.6 g/dL (13.5-17.5); LYMPHOCYTES # (AUTO) 1.2 K/uL (0.8-4.8); LYMPHOCYTES % (AUTO) 18.9 % (20.0-44.0); MEAN CORPUSCULAR HEMOGLOBIN 30 PG (26.0-33.0); MEAN CORPUSCULAR HGB CONC 33 g/dl (31.0-36.0); MEAN CORPUSCULAR VOLUME 90 fL (80-96); MONOCYTES # (AUTO) 0.6 K/uL (0.1-1.30); MONOCYTES % (AUTO) 8.6 % (2.0-12.0); NEUTROPHILS # (AUTO) 4.4 K/uL (1.8-8.9); NEUTROPHILS % (AUTO) 67.4 % (43.0-81.0); PLATELET COUNT (AUTO) 241 K/uL (150-450); RED BLOOD CELL COUNT(AUTO) 2.92 MIL/uL (4.5-6.0); WHITE BLOOD COUNT (AUTO) 6.5 K/uL (4.3-11.0)
[2024-12-21] MEDS: BLOOD SUGAR DIAGNOSTIC 1 EACH STRIP IN SCH (06:33)
[2024-12-21] MEDS: INSULIN REGULAR, HUMAN 100 UNIT/ML 3 ML VIAL SQ PRN (06:34)
[2024-12-21 06:40] LABS: CALCIUM, SERUM 7.5 mg/dL (8.5-10.1); CREATININE 6.4 mg/dL (0.6-1.3); MAGNESIUM 2.8 mg/dL (1.8-2.4); PHOSPHORUS 5.9 mg/dL (2.5-4.9); POTASSIUM 4.8 mmol/L (3.5-5.1)
[2024-12-21 08:00] VITALS: BP 126/62; TEMP 98.2; O2SAT 100
[2024-12-21] MEDS: PANTOPRAZOLE 40 MG VIAL IV SCH (10:21)
[2024-12-21] MEDS ORDERED: EPOETIN ALFA (10,000 UNIT) 10,000 UNIT/ML VIAL SQ SCH (10:30)
[2024-12-21] MEDS ORDERED: FUNGI NAIL TP (11:24)
[2024-12-21] MEDS ORDERED: SIME125C81 PO (11:24)
[2024-12-21] MEDS ORDERED: SITA50TA PO (11:24)
[2024-12-21] MEDS ORDERED: VADADUSTAT PO (11:24)
[2024-12-21] MEDS ORDERED: MELA5TAB PO (11:24)
[2024-12-21] MEDS ORDERED: BISA-79 PO (11:24)
[2024-12-21] MEDS ORDERED: HYDROMORPHONE INJ SYRINGE 0.5 MG in IV D5W 50 ML IV ONE (11:30)
[2024-12-21] MEDS: HYDROMORPHONE 1 MG/1 ML DISP.SYRIN IV ONE (11:52)
[2024-12-21] MEDS: PREGABALIN 25 MG CAPSULE PO SCH (12:34)
[2024-12-21] MEDS: NATEGLINIDE 60 MG TABLET PO SCH (13:00)
[2024-12-21] MEDS ORDERED: LIDOCAINE 1% INJ 50 ML MDV IJ ONE (13:46)
[2024-12-21] MEDS ORDERED: HEPARIN SODIUM, PORCINE 1,000 UNIT/ML VIAL ONE (13:46)
[2024-12-21] MEDS ORDERED: IOHEXOL 0 ML IV ONE (13:47)
[2024-12-21 16:08] VITALS: BP 106/60; TEMP 97.2; O2SAT 97
[2024-12-21] MEDS: APIXABAN 2.5 MG TABLET PO SCH (16:42)
[2024-12-21] MEDS: TRAMADOL HCL 50 MG TABLET PO PRN (16:42)
[2024-12-21 20:00] VITALS: BP 105/58; TEMP 97.9; O2SAT 94
[2024-12-21] MEDS ORDERED: ALBUMIN 25% 25 GM in PREMIX 1 EA IV PRN (20:30)
[2024-12-21 20:38] VITALS: BP 105/58; TEMP 97.9; O2SAT 94
[2024-12-21] MEDS ORDERED: ALBUMIN 25% 100 ML IV ONE (21:06)
[2024-12-21] MEDS: FINASTERIDE (5 MG) 5 MG TABLET PO SCH (21:51)
[2024-12-21] MEDS ORDERED: Medication Not On Formulary EA (Melatonin 10 MG) PO SCH (22:00)
[2024-12-21 22:45] VITALS: BP 119/61; TEMP 97.9; O2SAT 94
[2024-12-21] MEDS: CARVEDILOL 6.25 MG TABLET PO SCH (22:49)
[2024-12-22 06:54] LABS: BASOPHILS % (AUTO) 0.3 % (0.0-2.0); EOSINOPHILS # (AUTO) 0.2 K/uL (0.0-0.7); EOSINOPHILS % (AUTO) 2.8 % (0.0-6.0); HEMATOCRIT 25 % (39-51); HEMOGLOBIN 8.5 g/dL (13.5-17.5); LYMPHOCYTES # (AUTO) 1.1 K/uL (0.8-4.8); MEAN CORPUSCULAR HEMOGLOBIN 30 PG (26.0-33.0); MEAN CORPUSCULAR HGB CONC 33 g/dl (31.0-36.0); MEAN CORPUSCULAR VOLUME 89 fL (80-96); MONOCYTES # (AUTO) 0.5 K/uL (0.1-1.30); NEUTROPHILS # (AUTO) 4.7 K/uL (1.8-8.9); NEUTROPHILS % (AUTO) 71.9 % (43.0-81.0); PLATELET COUNT (AUTO) 239 K/uL (150-450); RED BLOOD CELL COUNT(AUTO) 2.84 MIL/uL (4.5-6.0); RED CELL DISTRIBUTION WIDTH 14.8 % (11.5-15.0); WHITE BLOOD COUNT (AUTO) 6.5 K/uL (4.3-11.0)
[2024-12-22 07:29] LABS: CALCIUM, SERUM 7.7 mg/dL (8.5-10.1); CREATININE 4.2 mg/dL (0.6-1.3); POTASSIUM 4.8 mmol/L (3.5-5.1)
[2024-12-22 08:30] VITALS: BP 137/63; TEMP 98.8; O2SAT 96
[2024-12-22] MEDS ORDERED: VADADUSTAT PO SCH (09:00)
[2024-12-22] MEDS: VIT B CMPLX 3/FA/VIT C/BIOTIN 1 TAB TABLET PO SCH (10:14)
[2024-12-22] MEDS: BACLOFEN (10 MG) 10 MG TABLET PO SCH (10:15)
[2024-12-22] MEDS: PANTOPRAZOLE 40 MG TABLET.DR PO SCH (10:15)
[2024-12-22] MEDS: LINAGLIPTIN 5 MG TABLET PO SCH (10:15)
[2024-12-22 16:00] VITALS: BP 126/51; TEMP 98.2; O2SAT 95
[2024-12-22 20:00] VITALS: BP 127/66; TEMP 98.6; O2SAT 96
[2024-12-22 21:15] VITALS: BP 127/66; TEMP 98.6; O2SAT 96
[2024-12-23 07:29] LABS: BASOPHILS % (AUTO) 0.4 % (0.0-2.0); EOSINOPHILS # (AUTO) 0.2 K/uL (0.0-0.7); EOSINOPHILS % (AUTO) 3.7 % (0.0-6.0); HEMATOCRIT 27 % (39-51); HEMOGLOBIN 8.7 g/dL (13.5-17.5); LYMPHOCYTES # (AUTO) 1.3 K/uL (0.8-4.8); LYMPHOCYTES % (AUTO) 20.9 % (20.0-44.0); MEAN CORPUSCULAR HEMOGLOBIN 30 PG (26.0-33.0); MEAN CORPUSCULAR HGB CONC 33 g/dl (31.0-36.0); MEAN CORPUSCULAR VOLUME 90 fL (80-96); MONOCYTES # (AUTO) 0.7 K/uL (0.1-1.30); MONOCYTES % (AUTO) 10.5 % (2.0-12.0); NEUTROPHILS % (AUTO) 64.5 % (43.0-81.0); PLATELET COUNT (AUTO) 240 K/uL (150-450); RED BLOOD CELL COUNT(AUTO) 2.94 MIL/uL (4.5-6.0); RED CELL DISTRIBUTION WIDTH 14.5 % (11.5-15.0); WHITE BLOOD COUNT (AUTO) 6.3 K/uL (4.3-11.0)
[2024-12-23 07:46] LABS: CALCIUM, SERUM 8.4 mg/dL (8.5-10.1); CREATININE 3.6 mg/dL (0.6-1.3); POTASSIUM 4.3 mmol/L (3.5-5.1)
[2024-12-23 08:00] VITALS: BP 139/60; TEMP 97.5; O2SAT 94; O2SAT 95
[2024-12-23] MEDS ORDERED: TRAM50TA2 PO (09:37)
[2024-12-23] MEDS ORDERED: EPOE1VIA7 SQ (09:37)
[2024-12-23] MEDS ORDERED: DOXY-326 PO (09:37)
[2024-12-23] MEDS ORDERED: BACL10TA PO (09:37)
[2024-12-23] MEDS ORDERED: DOCU100C36 PO (09:37)
[2024-12-23 16:00] VITALS: BP 125/63; TEMP 98.1; O2SAT 96
== END 2024-12-23 16:39 | disposition home health service (06) | DRG 314 ==
LOC: ER 18:17 → MED 21:05
PROVIDERS: ATTEND Nurse Practitioner Acute Care
PROC: 0JH63XZ Insertion of Tunneled Vascular Access Device into Chest Subcutaneous Tissue and Fascia, Percutaneous Approach (ICD-10-PCS; 2024-12-21)
PROC: 05HM33Z Insertion of Infusion Device into Right Internal Jugular Vein, Percutaneous Approach (ICD-10-PCS; 2024-12-21)
PROC: B513YZA Fluoroscopy of Right Jugular Veins using Other Contrast, Guidance (ICD-10-PCS; 2024-12-21)
PROC: 5A1D70Z Performance of Urinary Filtration, Intermittent, Less than 6 Hours Per Day (ICD-10-PCS; principal; 2024-12-21 21:00)
DX: T82.868A Thrombosis due to vascular prosthetic devices, implants and grafts, initial encounter (principal); N18.6 End stage renal disease; I13.2 Hypertensive heart and chronic kidney disease with heart failure and with stage 5 chronic kidney disease, or end stage renal disease; I69.354 Hemiplegia and hemiparesis following cerebral infarction affecting left non-dominant side; E44.0 Moderate protein-calorie malnutrition; I48.20 Chronic atrial fibrillation, unspecified; L03.116 Cellulitis of left lower limb; D64.9 Anemia, unspecified; E03.9 Hypothyroidism, unspecified; E11.22 Type 2 diabetes mellitus with diabetic chronic kidney disease; I25.10 Atherosclerotic heart disease of native coronary artery without angina pectoris; I50.9 Heart failure, unspecified; Y92.099 Unspecified place in other non-institutional residence as the place of occurrence of the external cause; Y71.2 Prosthetic and other implants, materials and accessory cardiovascular devices associated with adverse incidents; M89.8X9 Other specified disorders of bone, unspecified site; E11.40 Type 2 diabetes mellitus with diabetic neuropathy, unspecified; D63.1 Anemia in chronic kidney disease; E88.09 Other disorders of plasma-protein metabolism, not elsewhere classified; E78.5 Hyperlipidemia, unspecified; N40.0 Benign prostatic hyperplasia without lower urinary tract symptoms; Z79.84 Long term (current) use of oral hypoglycemic drugs; Z79.01 Long term (current) use of anticoagulants; Z79.899 Other long term (current) drug therapy; Z99.2 Dependence on renal dialysis; M62.562 Muscle wasting and atrophy, not elsewhere classified, left lower leg; M62.561 Muscle wasting and atrophy, not elsewhere classified, right lower leg; Z74.01 Bed confinement status; G47.30 Sleep apnea, unspecified; E87.70 Fluid overload, unspecified
CPT/HCPCS: 36415; 71045-TC; 80048-TC; 82962-TC; 83735-TC; 84100-TC; 85025-TC; 85730-TC; 86706; 87081-TC; 90935-TC; 93930-TC; A4216; C1750; C1757; C1769; C1894; G0378; J0690; J0885; J1171; J1644; J1815; J2470; J2704; J3490; J7030; P9047; Q9967

== ENCOUNTER 2025-01-01 16:25 | Inpatient (IN) | payer MEDICARE, OTHER ==
[~2025-01-01] VITALS: Ht 172.7 cm; Wt 77.1 kg
[~2025-01-01 16:25] MED LIST changes: +BACL10TA PO; +BISA-79 PO; -CHOL200059 PO; +DOCU100C36 PO; +DOXY-326 PO; +EPOE1VIA7 SQ; +FUNGI NAIL TP; -LOPE-195 PO; +MELA5TAB PO; -NUT.237L85 PO; +SIME125C81 PO; -SITA25TA PO; +SITA50TA PO; +TRAM50TA2 PO; +VADADUSTAT PO
[2025-01-01 19:00] VITALS: BP 139/84; TEMP 97.9
[2025-01-01] MEDS ORDERED: Z GUARD REMEDY 4 OZ OINT TP PRN (19:30)
[2025-01-01] MEDS ORDERED: ACETAMINOPHEN 325 MG TABLET PO PRN (19:30)
[2025-01-01] MEDS ORDERED: ONDANSETRON HCL/PF 4 MG/2 ML VIAL IVP PRN (19:30)
[2025-01-01 20:00] VITALS: BP 165/70; TEMP 97.9
[2025-01-01 21:01] LABS: BASOPHILS % (AUTO) 0.3 % (0.0-2.0); EOSINOPHILS # (AUTO) 0.4 K/uL (0.0-0.7); EOSINOPHILS % (AUTO) 3.7 % (0.0-6.0); HEMATOCRIT 32 % (39-51); HEMOGLOBIN 10.3 g/dL (13.5-17.5); LYMPHOCYTES % (AUTO) 16.5 % (20.0-44.0); MEAN CORPUSCULAR HEMOGLOBIN 29 PG (26.0-33.0); MEAN CORPUSCULAR HGB CONC 32 g/dl (31.0-36.0); MEAN CORPUSCULAR VOLUME 91 fL (80-96); MONOCYTES # (AUTO) 1.2 K/uL (0.1-1.30); MONOCYTES % (AUTO) 9.6 % (2.0-12.0); NEUTROPHILS # (AUTO) 8.3 K/uL (1.8-8.9); NEUTROPHILS % (AUTO) 69.9 % (43.0-81.0); PLATELET COUNT (AUTO) 284 K/uL (150-450); RED BLOOD CELL COUNT(AUTO) 3.55 MIL/uL (4.5-6.0); RED CELL DISTRIBUTION WIDTH 14.9 % (11.5-15.0); WHITE BLOOD COUNT (AUTO) 11.9 K/uL (4.3-11.0)
[2025-01-01 21:02] LABS: POTASSIUM 4.8 mmol/L (3.5-5.1)
[2025-01-01 21:09] LABS: ALBUMIN 3.6 g/dL (3.4-5.0); BILIRUBIN,TOTAL 0.3 mg/dL (0.2-1.0); TOTAL PROTEIN, SERUM 7.9 g/dL (6.4-8.2)
[2025-01-01] MEDS: ATORVASTATIN 40 MG TABLET PO SCH (21:56)
[2025-01-01 22:28] LABS: INR 1.21 (0.91-1.10); PARTIAL THROMBOPLASTIN TIME 38.4 SEC (24.3-34.3); PROTHROMBIN TIME 12.7 SECS (9.2-11.1)
[2025-01-01 22:31] LABS: CHOLESTEROL 212 mg/dL (<200); HDL CHOLESTEROL 56 mg/dL (40-60); LDL 122 mg/dL (0-99); TRIGLYCERIDES 113 mg/dL (30-150)
[2025-01-01 22:32] LABS: THYROID STIMULATING HORMONE 1.06 uIU/mL (0.358-3.74)
[2025-01-02] VITALS: BP 140/78; TEMP 97.9
[2025-01-02] MEDS ORDERED: DEXTROSE 50%-WATER 50 ML DISP.SYRIN IV PRN (00:30)
[2025-01-02] MEDS ORDERED: CEFEPIME 1 GM VIAL ONE (01:37)
[2025-01-02] MEDS: CEFEPIME 1 GM in IV D5W 50 ML IV ONE (01:38)
[2025-01-02 01:43] LABS: LACTIC ACID 1.7 mmol/L (0.4-2.0)
[2025-01-02] MEDS: VANCOMYCIN 1 GM /D5W 250 ML PB IV ONE (01:47)
[2025-01-02] MEDS: VANCOMYCIN 1.5 GM in IV D5W 500 ML IV ONE (02:17)
[2025-01-02 05:48] VITALS: BP 172/85; TEMP 98
[2025-01-02] MEDS: PANTOPRAZOLE 40 MG TABLET.DR PO SCH (07:30)
[2025-01-02 07:56] LABS: BASOPHILS % (AUTO) 0.3 % (0.0-2.0); EOSINOPHILS # (AUTO) 0.2 K/uL (0.0-0.7); EOSINOPHILS % (AUTO) 1.3 % (0.0-6.0); HEMATOCRIT 31 % (39-51); LYMPHOCYTES # (AUTO) 1.3 K/uL (0.8-4.8); LYMPHOCYTES % (AUTO) 10.9 % (20.0-44.0); MEAN CORPUSCULAR HEMOGLOBIN 29 PG (26.0-33.0); MEAN CORPUSCULAR HGB CONC 33 g/dl (31.0-36.0); MEAN CORPUSCULAR VOLUME 89 fL (80-96); MONOCYTES % (AUTO) 8.7 % (2.0-12.0); NEUTROPHILS # (AUTO) 9.3 K/uL (1.8-8.9); NEUTROPHILS % (AUTO) 78.8 % (43.0-81.0); PLATELET COUNT (AUTO) 275 K/uL (150-450); RED BLOOD CELL COUNT(AUTO) 3.42 MIL/uL (4.5-6.0); RED CELL DISTRIBUTION WIDTH 14.5 % (11.5-15.0); WHITE BLOOD COUNT (AUTO) 11.8 K/uL (4.3-11.0)
[2025-01-02 08:00] VITALS: BP 157/71; TEMP 98.4; O2SAT 100
[2025-01-02 08:23] LABS: APPEARANCE,URINE CLEAR (CLEAR); BILIRUBIN,URINE NEGATIVE (NEGATIVE); BLOOD, URINE TRACE-INTA Ery/uL (NEGATIVE); COLOR,URINE YELLOW (YELLOW); KETONES,URINE NEGATIVE (NEGATIVE); LEUKOCYTE ESTERASE ,URINE TRACE (NEGATIVE); NITRITE, URINE NEGATIVE (NEGATIVE); PH,URINE >8.5 (5.0-8.0); PROTEIN,URINE 2+ mg/dl (NEGATIVE); UGLUCOSE NEGATIVE (NEGATIVE); UROBILINOGEN,URINE 0.2 EU/dL (0.2)
[2025-01-02] MEDS: BLOOD SUGAR DIAGNOSTIC 1 EACH STRIP IN SCH (08:26)
[2025-01-02] MEDS: ASPIRIN EC 81 MG TABLET.DR PO SCH (08:27)
[2025-01-02 08:35] LABS: CALCIUM, SERUM 8.1 mg/dL (8.5-10.1); CREATININE 5.9 mg/dL (0.6-1.3); MAGNESIUM 2.5 mg/dL (1.8-2.4); PHOSPHORUS 6.4 mg/dL (2.5-4.9); POTASSIUM 4.9 mmol/L (3.5-5.1)
[2025-01-02 08:36] LABS: AMPHETAMINE, URINE NEGATIVE (NEGATIVE); BARBITURATE, URINE NEGATIVE (NEGATIVE); BENZODIAZEPINE, URINE NEGATIVE (NEGATIVE); CANNABINOID, URINE NEGATIVE (NEGATIVE); COCCAINE, URINE NEGATIVE (NEGATIVE); OPIATE, URINE NEGATIVE (NEGATIVE); PHENCYCLIDINE SCREEN,URINE NEGATIVE (NEGATIVE)
[2025-01-02 08:36] LABS: THYROID STIMULATING HORMONE 0.69 uIU/mL (0.358-3.74)
[2025-01-02 09:11] LABS: ADD URINE CULTURE YES; BACTERIA,URINE 1+ /HPF (None Seen); RBC,URINE 0-2 /HPF (0-2); WBC,URINE 0-2 /HPF (0-3)
[2025-01-02 09:12] LABS: SQUAMOUS EPITHELIAL CELL,UR None Seen /HPF (None Seen); TRIPLE PHOSPHATE CRYSTAL,UR Many /HPF (None Seen)
[2025-01-02] MEDS ORDERED: hydrALAZINE HCL IV 20 MG VIAL IV PRN (09:30)
[2025-01-02] MEDS: PREGABALIN 25 MG CAPSULE PO SCH (10:00)
[2025-01-02] MEDS: EPOETIN ALFA (4000 UNIT) 4,000 UNIT/ML VIAL SQ SCH (10:31)
[2025-01-02 11:02] LABS: THYROID STIMULATING HORMONE 0.67 uIU/mL (0.358-3.74)
[2025-01-02 12:00] VITALS: BP 153/91; TEMP 98.6; O2SAT 100
[2025-01-02] MEDS: NATEGLINIDE 60 MG TABLET PO SCH (13:00)
[2025-01-02 16:00] VITALS: BP 118/78; TEMP 98.6; O2SAT 99
[2025-01-02] MEDS: CARVEDILOL 6.25 MG TABLET PO SCH (16:17)
[2025-01-02] MEDS: APIXABAN 2.5 MG TABLET PO SCH (16:17)
[2025-01-02 16:25] LABS: ABG BASE EXCESS -1.7 mmol/L (-2.0-3.0); ABG OXYGEN SATURATION 99.2 % (94.0-98.0); ABG PH 7.447 (7.350-7.450); ABG PO2 142.7 mmHg (83.0-108.0); ABG TOTAL HEMOGLOBIN 11.5 G/dL (13.5-17.5); COHb 1.5 % (0.5-1.5); MetHb 0.2 % (0.0-1.5); O2Hb 97.5 % (94.0-97.0); SITE, ABG RIGHT RADIAL
[2025-01-02 20:00] VITALS: BP 149/82; TEMP 98.8; O2SAT 94
[2025-01-02] MEDS: FINASTERIDE (5 MG) 5 MG TABLET PO SCH (21:24)
[2025-01-02] MEDS: CEFEPIME 1 GM in IV D5W 50 ML IV SCH (22:36)
[2025-01-02] MEDS: INSULIN REGULAR, HUMAN 100 UNIT/ML 3 ML VIAL SQ PRN (22:37)
[2025-01-03] VITALS (8 sets, daily range): BP systolic 115–162; BP diastolic 49–82; TEMP 97.5–98.6; O2SAT 94–100
[2025-01-03] MEDS: VANCOMYCIN 500 MG in IV D5W 100 ML IV PRN (02:03)
[2025-01-03 07:08] LABS: ALBUMIN 3.5 g/dL (3.4-5.0); BILIRUBIN,TOTAL 0.4 mg/dL (0.2-1.0); CALCIUM, SERUM 8.5 mg/dL (8.5-10.1); CREATININE 4.8 mg/dL (0.6-1.3); MAGNESIUM 2.6 mg/dL (1.8-2.4); PHOSPHORUS 6.7 mg/dL (2.5-4.9); POTASSIUM 4.5 mmol/L (3.5-5.1); TOTAL PROTEIN, SERUM 7.8 g/dL (6.4-8.2)
[2025-01-03 07:35] LABS: BASOPHILS % (AUTO) 0.4 % (0.0-2.0); EOSINOPHILS # (AUTO) 0.1 K/uL (0.0-0.7); EOSINOPHILS % (AUTO) 0.9 % (0.0-6.0); HEMATOCRIT 33 % (39-51); HEMOGLOBIN 10.6 g/dL (13.5-17.5); LYMPHOCYTES # (AUTO) 1.6 K/uL (0.8-4.8); LYMPHOCYTES % (AUTO) 13.5 % (20.0-44.0); MEAN CORPUSCULAR HEMOGLOBIN 29 PG (26.0-33.0); MEAN CORPUSCULAR HGB CONC 32 g/dl (31.0-36.0); MEAN CORPUSCULAR VOLUME 91 fL (80-96); MONOCYTES # (AUTO) 1.5 K/uL (0.1-1.30); MONOCYTES % (AUTO) 12.6 % (2.0-12.0); NEUTROPHILS # (AUTO) 8.8 K/uL (1.8-8.9); NEUTROPHILS % (AUTO) 72.6 % (43.0-81.0); PLATELET COUNT (AUTO) 272 K/uL (150-450); RED BLOOD CELL COUNT(AUTO) 3.61 MIL/uL (4.5-6.0); RED CELL DISTRIBUTION WIDTH 14.7 % (11.5-15.0); WHITE BLOOD COUNT (AUTO) 12.2 K/uL (4.3-11.0)
[2025-01-03] MEDS: LINAGLIPTIN 5 MG TABLET PO SCH (09:03)
[2025-01-03] MEDS: BENAZEPRIL HCL 20 MG TABLET PO SCH (09:03)
[2025-01-03] MEDS ORDERED: LORAZEPAM INJ 2 MG/ML VIAL IV ONE (09:30)
[2025-01-03] MEDS ORDERED: QUETIAPINE FUMARATE 25 MG TABLET PO PRN (10:30)
[2025-01-03] MEDS: CLOTRIMAZOLE 1% 15 GM TUBE TP SCH (11:04)
[2025-01-03 11:08] LABS: FOLIC ACID > 20.0 ng/mL (>3.0)
[2025-01-03] MEDS: LORAZEPAM INJ 2 MG/ML VIAL IV ONE ×2 (13:00→16:40)
[2025-01-04] VITALS: BP 150/52; TEMP 97.5; O2SAT 99
[2025-01-04 04:00] VITALS: BP 152/54; TEMP 97.3; O2SAT 99
[2025-01-04 08:00] VITALS: BP 139/51; TEMP 97.3; O2SAT 99
[2025-01-04] MEDS: FUROSEMIDE 20 MG TABLET PO SCH (08:14)
[2025-01-04 11:53] LABS: BASOPHILS # (AUTO) 0.1 K/uL (0.0-0.2); BASOPHILS % (AUTO) 0.5 % (0.0-2.0); EOSINOPHILS # (AUTO) 0.2 K/uL (0.0-0.7); EOSINOPHILS % (AUTO) 1.8 % (0.0-6.0); HEMATOCRIT 29 % (39-51); HEMOGLOBIN 9.7 g/dL (13.5-17.5); LYMPHOCYTES # (AUTO) 1.2 K/uL (0.8-4.8); LYMPHOCYTES % (AUTO) 10.6 % (20.0-44.0); MEAN CORPUSCULAR HEMOGLOBIN 30 PG (26.0-33.0); MEAN CORPUSCULAR HGB CONC 33 g/dl (31.0-36.0); MEAN CORPUSCULAR VOLUME 90 fL (80-96); MONOCYTES % (AUTO) 17.6 % (2.0-12.0); NEUTROPHILS % (AUTO) 69.5 % (43.0-81.0); PLATELET COUNT (AUTO) 238 K/uL (150-450); RED BLOOD CELL COUNT(AUTO) 3.26 MIL/uL (4.5-6.0); RED CELL DISTRIBUTION WIDTH 15.3 % (11.5-15.0); WHITE BLOOD COUNT (AUTO) 11.6 K/uL (4.3-11.0)
[2025-01-04 12:00] VITALS: BP 123/61; TEMP 98; O2SAT 96
[2025-01-04 12:29] LABS: CALCIUM, SERUM 8.3 mg/dL (8.5-10.1); CARBON DIOXIDE 23 mmol/L (21-32); CHLORIDE 103 mmol/L (98-107); CREATININE 6.6 mg/dL (0.6-1.3); GLUCOSE 179 mg/dL (74-106); POTASSIUM 4.9 mmol/L (3.5-5.1); SODIUM SERUM 140 mmol/L (136-145)
[2025-01-04 12:33] LABS: UREA NITROGEN, BLOOD 93 mg/dL (7-18)
[2025-01-04 13:07] LABS: PLATELET ESTIMATE ADEQUATE
[2025-01-04 13:10] LABS: LYMPHOCYTES % (MANUAL) 11 % (16-48); NEUTROPHILS % (MANUAL) 76 (42-76)
[2025-01-04 13:11] LABS: MONOCYTES % (MANUAL) 13 % (0-11.0)
[2025-01-04 13:13] LABS: ANISOCYTOSIS 1+
[2025-01-04] MEDS: EPOETIN ALFA (4000 UNIT) 4,000 UNIT/ML VIAL SQ SCH (15:18)
[2025-01-04 16:00] VITALS: BP 108/56; TEMP 98; O2SAT 96
[2025-01-04 20:00] VITALS: BP 98/58; TEMP 97.5; O2SAT 100
[2025-01-05] VITALS: BP 112/55; TEMP 97.5; O2SAT 99
[2025-01-05 04:00] VITALS: BP 98/65; TEMP 98.6; O2SAT 98
[2025-01-05 07:37] LABS: CALCIUM, SERUM 8.1 mg/dL (8.5-10.1); CREATININE 5.9 mg/dL (0.6-1.3); POTASSIUM 4.6 mmol/L (3.5-5.1)
[2025-01-05 07:55] LABS: BILIRUBIN,DIRECT 0.1 mg/dL (0.0-0.2); BILIRUBIN,TOTAL 0.4 mg/dL (0.2-1.0); TOTAL PROTEIN, SERUM 7.1 g/dL (6.4-8.2)
[2025-01-05 08:00] VITALS: BP 96/60; TEMP 97.7; O2SAT 98
[2025-01-05 08:07] LABS: BASOPHILS % (AUTO) 0.3 % (0.0-2.0); EOSINOPHILS # (AUTO) 0.2 K/uL (0.0-0.7); EOSINOPHILS % (AUTO) 1.5 % (0.0-6.0); HEMATOCRIT 32 % (39-51); HEMOGLOBIN 10.5 g/dL (13.5-17.5); LYMPHOCYTES % (AUTO) 20.7 % (20.0-44.0); MEAN CORPUSCULAR HEMOGLOBIN 30 PG (26.0-33.0); MEAN CORPUSCULAR HGB CONC 33 g/dl (31.0-36.0); MEAN CORPUSCULAR VOLUME 92 fL (80-96); MONOCYTES # (AUTO) 1.5 K/uL (0.1-1.30); MONOCYTES % (AUTO) 15.8 % (2.0-12.0); NEUTROPHILS % (AUTO) 61.7 % (43.0-81.0); PLATELET COUNT (AUTO) 236 K/uL (150-450); RED BLOOD CELL COUNT(AUTO) 3.54 MIL/uL (4.5-6.0); RED CELL DISTRIBUTION WIDTH 15.4 % (11.5-15.0); WHITE BLOOD COUNT (AUTO) 9.8 K/uL (4.3-11.0)
[2025-01-05] MEDS ORDERED: SULF1TAB48 PO (10:08)
[2025-01-05 12:00] VITALS: BP 98/62; TEMP 97.7; O2SAT 94
[2025-01-05 16:00] VITALS: BP 97/61; TEMP 97.5; O2SAT 94
[2025-01-05 20:00] VITALS: BP 100/59; TEMP 97.9; O2SAT 95
[2025-01-06] VITALS: BP 100/62; TEMP 98.7; O2SAT 95
[2025-01-06 04:00] VITALS: BP 105/61; TEMP 98.3; O2SAT 95
[2025-01-06 07:53] LABS: CALCIUM, SERUM 7.5 mg/dL (8.5-10.1); CARBON DIOXIDE 21 mmol/L (21-32); CHLORIDE 96 mmol/L (98-107); GLUCOSE 148 mg/dL (74-106); POTASSIUM 4.8 mmol/L (3.5-5.1); SODIUM SERUM 134 mmol/L (136-145)
[2025-01-06 08:05] VITALS: BP 100/54; TEMP 97.3; O2SAT 97
[2025-01-06 08:37] LABS: UREA NITROGEN, BLOOD 90 mg/dL (7-18)
[2025-01-06 08:38] LABS: CREATININE 7.7 mg/dL (0.6-1.3)
[2025-01-06 12:02] VITALS: BP 99/53; TEMP 97.1; O2SAT 94
[2025-01-06 16:05] VITALS: BP 107/58; TEMP 97.3; O2SAT 100
[2025-01-06 19:08] LABS: VITAMIN B1 THIAMINE,WB 184.6 nmol/L (66.5-200.0)
[2025-01-06 20:00] VITALS: BP 90/51; TEMP 97.5; O2SAT 100
[2025-01-07] VITALS: BP 113/49; TEMP 97.3; O2SAT 100
[2025-01-07 04:00] VITALS: BP 99/50; TEMP 97.3; O2SAT 98
[2025-01-07 07:02] LABS: CALCIUM, SERUM 7.4 mg/dL (8.5-10.1); CREATININE 5.9 mg/dL (0.6-1.3); POTASSIUM 4.8 mmol/L (3.5-5.1)
[2025-01-07 08:00] VITALS: BP 105/38; TEMP 97.9; O2SAT 100
[2025-01-07 16:00] VITALS: BP 115/40; TEMP 98.1; O2SAT 99
[2025-01-08 10:11] LABS: METHYLMALONIC ACID 409 nmol/L (0-378)
== END 2025-01-07 16:22 | DRG 67 ==
LOC: TELE1 18:34 → TELE-TD 01-02 16:00 → TELE1 01-03 09:14 → MEDSG1 01-07 10:38
PROVIDERS: ADMIT Nurse Practitioner Family; ATTEND Internal Medicine
PROC: 5A1D70Z Performance of Urinary Filtration, Intermittent, Less than 6 Hours Per Day (ICD-10-PCS; principal; 2025-01-02)
DX: I65.22 Occlusion and stenosis of left carotid artery (principal); N18.6 End stage renal disease; E87.1 Hypo-osmolality and hyponatremia; I13.2 Hypertensive heart and chronic kidney disease with heart failure and with stage 5 chronic kidney disease, or end stage renal disease; G93.40 Encephalopathy, unspecified; N39.0 Urinary tract infection, site not specified; D63.8 Anemia in other chronic diseases classified elsewhere; I50.9 Heart failure, unspecified; E78.00 Pure hypercholesterolemia, unspecified; F32.A Depression, unspecified; Z86.73 Personal history of transient ischemic attack (TIA), and cerebral infarction without residual deficits; I25.10 Atherosclerotic heart disease of native coronary artery without angina pectoris; E03.9 Hypothyroidism, unspecified; E11.22 Type 2 diabetes mellitus with diabetic chronic kidney disease; E11.51 Type 2 diabetes mellitus with diabetic peripheral angiopathy without gangrene; Z79.01 Long term (current) use of anticoagulants; Z79.899 Other long term (current) drug therapy; E83.42 Hypomagnesemia; M89.8X9 Other specified disorders of bone, unspecified site; F12.90 Cannabis use, unspecified, uncomplicated; R29.717 NIHSS score 17; S81.802A Unspecified open wound, left lower leg, initial encounter; X58.XXXA Exposure to other specified factors, initial encounter; Y92.9 Unspecified place or not applicable; Z78.1 Physical restraint status; Z99.2 Dependence on renal dialysis; R91.1 Solitary pulmonary nodule
CPT/HCPCS: 36415; 70450-TC; 70551-TC; 71045-TC; 80048-TC; 80053-TC; 80061-TC; 80076-TC; 80202-TC; 81001; 82140-TC; 82607-TC; 83605-TC; 83735-TC; 83921; 84100-TC; 84425; 84443-TC; 85025-TC; 85610-TC; 85730-TC; 87040-TC; 87081-TC; 87086-TC; 87186-TC; 90935-TC; 92526; 92611-TC; 93307-TC; 93880-TC; 93930-TC; 97110-TC; 97112-TC; 97116-TC; 97530-TC; 97535-TC; A4223; G0378; J0692; J0885; J1815; J2060; J3370; J3371; J7030; J7050; J7060

== ENCOUNTER 2025-01-11 09:34 | Inpatient (IN) | payer MEDICARE, OTHER ==
[2025-01-11] VITALS (7 sets, daily range): BP systolic 134–135; BP diastolic 59–66; TEMP 97.7–98.1; O2SAT 96–99
[~2025-01-11] VITALS: Ht 165.1 cm; Wt 75.3 kg
[~2025-01-11 09:34] MED LIST changes: -DOXY-326 PO; -SIME125C81 PO; +SULF1TAB48 PO
[2025-01-11] MEDS ORDERED: BACL10TA PO (10:30)
[2025-01-11] MEDS ORDERED: DOCU100T2 PO (10:30)
[2025-01-11] MEDS ORDERED: LOPE-195 PO (10:30)
[2025-01-11 10:56] LABS: ABG BASE EXCESS 0.6 mmol/L (-2.0-3.0); ABG OXYGEN SATURATION 99.1 % (94.0-98.0); ABG PCO2 38.5 mmHg (35.0-48.0); ABG PH 7.428 (7.350-7.450); ABG TOTAL HEMOGLOBIN 9.8 G/dL (13.5-17.5); COHb 0.4 % (0.5-1.5); MetHb 0.3 % (0.0-1.5); O2Hb 98.4 % (94.0-97.0)
[2025-01-11 11:00] LABS: BASOPHILS # (AUTO) 0.1 K/uL (0.0-0.2); BASOPHILS % (AUTO) 0.5 % (0.0-2.0); EOSINOPHILS # (AUTO) 0.1 K/uL (0.0-0.7); EOSINOPHILS % (AUTO) 0.6 % (0.0-6.0); HEMATOCRIT 31 % (39-51); HEMOGLOBIN 10.1 g/dL (13.5-17.5); LYMPHOCYTES # (AUTO) 1.8 K/uL (0.8-4.8); LYMPHOCYTES % (AUTO) 15.7 % (20.0-44.0); MEAN CORPUSCULAR HEMOGLOBIN 30 PG (26.0-33.0); MEAN CORPUSCULAR HGB CONC 33 g/dl (31.0-36.0); MEAN CORPUSCULAR VOLUME 91 fL (80-96); MONOCYTES # (AUTO) 1.2 K/uL (0.1-1.30); NEUTROPHILS # (AUTO) 8.1 K/uL (1.8-8.9); NEUTROPHILS % (AUTO) 72.2 % (43.0-81.0); PLATELET COUNT (AUTO) 218 K/uL (150-450); RED BLOOD CELL COUNT(AUTO) 3.41 MIL/uL (4.5-6.0); RED CELL DISTRIBUTION WIDTH 15.7 % (11.5-15.0); WHITE BLOOD COUNT (AUTO) 11.3 K/uL (4.3-11.0)
[2025-01-11 11:14] LABS: CALCIUM, SERUM 8.3 mg/dL (8.5-10.1); CARBON DIOXIDE 27 mmol/L (21-32); CHLORIDE 97 mmol/L (98-107); CREATININE 5.4 mg/dL (0.6-1.3); GLUCOSE 129 mg/dL (74-106); POTASSIUM 5.4 mmol/L (3.5-5.1); SODIUM SERUM 136 mmol/L (136-145); UREA NITROGEN, BLOOD 42 mg/dL (7-18)
[2025-01-11 11:19] LABS: LACTIC ACID 1.8 mmol/L (0.4-2.0)
[2025-01-11 11:27] LABS: NT-PRO BNP 1978 pg/mL (0-125)
[2025-01-11] MEDS ORDERED: ZOLPIDEM TARTRATE 5 MG TABLET PO PRN (15:00)
[2025-01-11] MEDS ORDERED: MAGNESIUM HYDROXIDE 30 ML UDC PO PRN (15:00)
[2025-01-11] MEDS ORDERED: ONDANSETRON HCL/PF 4 MG/2 ML VIAL IVP PRN (15:00)
[2025-01-11] MEDS ORDERED: MAG HYDROX/AL HYDROX/SIMETH 30 ML UDC PO PRN (15:00)
[2025-01-11] MEDS ORDERED: Medication Not On Formulary EA (Pregabalin (Lyrica) 75 MG) PO SCH (15:30)
[2025-01-11] MEDS ORDERED: BISACODYL (5 MG) 5 MG TABLET.DR PO PRN (15:30)
[2025-01-11] MEDS: ENOXAPARIN SODIUM 40 MG/0.4 ML DISP.SYRIN SQ SCH (15:53)
[2025-01-11] MEDS: ALBUTEROL HALF STRENGTH 1.25 MG/3 ML VIAL.NEB NEB SCH (16:09)
[2025-01-11] MEDS: IPRATROPIUM NEB FS 0.5 MG/2.5 ML AMPUL.NEB NEB SCH (16:10)
[2025-01-11] MEDS: DOCUSATE SODIUM 100 MG CAPSULE PO SCH (17:31)
[2025-01-11] MEDS: CARVEDILOL 6.25 MG TABLET PO SCH (17:32)
[2025-01-11] MEDS: NATEGLINIDE 60 MG TABLET PO SCH (17:32)
[2025-01-11] MEDS: ACETAMINOPHEN ES 500 MG TABLET PO SCH (17:32)
[2025-01-11] MEDS: BACLOFEN (10 MG) 10 MG TABLET PO SCH (17:33)
[2025-01-11] MEDS: BLOOD SUGAR DIAGNOSTIC 1 EACH STRIP VI SCH (17:34)
[2025-01-11] MEDS: APIXABAN 2.5 MG TABLET PO SCH (17:34)
[2025-01-11] MEDS: INSULIN REGULAR, HUMAN 100 UNIT/ML 3 ML VIAL SQ PRN (17:35)
[2025-01-11] MEDS: FINASTERIDE (5 MG) 5 MG TABLET PO SCH (21:06)
[2025-01-11] MEDS: LOPERAMIDE HCL (2 MG CAP) 2 MG CAPSULE PO SCH (21:06)
[2025-01-12] VITALS (14 sets, daily range): BP systolic 99–144; BP diastolic 50–87; TEMP 97.4–98.3; O2SAT 96–99
[2025-01-12] MEDS: PANTOPRAZOLE 40 MG TABLET.DR PO SCH (07:30)
[2025-01-12 08:30] LABS: BASOPHILS % (AUTO) 0.4 % (0.0-2.0); EOSINOPHILS # (AUTO) 0.2 K/uL (0.0-0.7); EOSINOPHILS % (AUTO) 1.9 % (0.0-6.0); HEMATOCRIT 29 % (39-51); HEMOGLOBIN 9.4 g/dL (13.5-17.5); LYMPHOCYTES # (AUTO) 1.4 K/uL (0.8-4.8); LYMPHOCYTES % (AUTO) 15.6 % (20.0-44.0); MEAN CORPUSCULAR HEMOGLOBIN 29 PG (26.0-33.0); MEAN CORPUSCULAR HGB CONC 32 g/dl (31.0-36.0); MEAN CORPUSCULAR VOLUME 90 fL (80-96); MONOCYTES # (AUTO) 0.8 K/uL (0.1-1.30); MONOCYTES % (AUTO) 8.7 % (2.0-12.0); NEUTROPHILS # (AUTO) 6.5 K/uL (1.8-8.9); NEUTROPHILS % (AUTO) 73.4 % (43.0-81.0); PLATELET COUNT (AUTO) 206 K/uL (150-450); RED BLOOD CELL COUNT(AUTO) 3.25 MIL/uL (4.5-6.0); RED CELL DISTRIBUTION WIDTH 15.7 % (11.5-15.0); WHITE BLOOD COUNT (AUTO) 8.9 K/uL (4.3-11.0)
[2025-01-12] MEDS: LINAGLIPTIN 5 MG TABLET PO SCH (09:00)
[2025-01-12] MEDS: BENAZEPRIL HCL 20 MG TABLET PO SCH (09:00)
[2025-01-12] MEDS: VIT B CMPLX 3/FA/VIT C/BIOTIN 1 TAB TABLET PO SCH (09:00)
[2025-01-12] MEDS ORDERED: VADADUSTAT PO SCH (09:00)
[2025-01-12 10:02] LABS: CALCIUM, SERUM 8.5 mg/dL (8.5-10.1); CREATININE 6.5 mg/dL (0.6-1.3); MAGNESIUM 2.7 mg/dL (1.8-2.4); PHOSPHORUS 6.2 mg/dL (2.5-4.9); POTASSIUM 5.4 mmol/L (3.5-5.1)
[2025-01-12] MEDS ORDERED: CT SWABBABLE VALVE TRANS SET 1 EA INFUS.SET MC ONE (11:32)
[2025-01-12] MEDS ORDERED: IOHEXOL-350 100 ML VIAL IV ONE (11:32)
[2025-01-12] MEDS ORDERED: IV NS 0.9% 250 ML IV ONE (11:32)
[2025-01-12] MEDS: HEPARIN SODIUM, PORCINE 1000 UNIT/1 ML VIAL IJ ONE (14:41)
[2025-01-12] MEDS: ATORVASTATIN 10 MG TABLET PO SCH (21:22)
[2025-01-13] VITALS (10 sets, daily range): BP systolic 114–141; BP diastolic 55–118; TEMP 98–98.8; O2SAT 92–99
[2025-01-13] MEDS ORDERED: LOPERAMIDE HCL (2 MG CAP) 2 MG CAPSULE ONE (04:31)
[2025-01-13] MEDS: FUROSEMIDE 20 MG TABLET PO SCH (09:20)
[2025-01-13 10:20] LABS: BASOPHILS # (AUTO) 0.1 K/uL (0.0-0.2); BASOPHILS % (AUTO) 0.6 % (0.0-2.0); EOSINOPHILS # (AUTO) 0.1 K/uL (0.0-0.7); HEMATOCRIT 31 % (39-51); HEMOGLOBIN 9.9 g/dL (13.5-17.5); LYMPHOCYTES # (AUTO) 1.3 K/uL (0.8-4.8); LYMPHOCYTES % (AUTO) 12.3 % (20.0-44.0); MEAN CORPUSCULAR HEMOGLOBIN 29 PG (26.0-33.0); MEAN CORPUSCULAR HGB CONC 32 g/dl (31.0-36.0); MEAN CORPUSCULAR VOLUME 91 fL (80-96); MONOCYTES # (AUTO) 1.2 K/uL (0.1-1.30); NEUTROPHILS # (AUTO) 8.1 K/uL (1.8-8.9); NEUTROPHILS % (AUTO) 75.1 % (43.0-81.0); PLATELET COUNT (AUTO) 224 K/uL (150-450); RED BLOOD CELL COUNT(AUTO) 3.39 MIL/uL (4.5-6.0); RED CELL DISTRIBUTION WIDTH 15.6 % (11.5-15.0); WHITE BLOOD COUNT (AUTO) 10.8 K/uL (4.3-11.0)
[2025-01-13 10:41] LABS: CALCIUM, SERUM 8.8 mg/dL (8.5-10.1); CREATININE 6.4 mg/dL (0.6-1.3); MAGNESIUM 2.5 mg/dL (1.8-2.4); PHOSPHORUS 6.8 mg/dL (2.5-4.9); POTASSIUM 4.9 mmol/L (3.5-5.1)
[2025-01-13] MEDS: QUETIAPINE FUMARATE 25 MG TABLET PO PRN (21:41)
[2025-01-14] VITALS: BP 115/69; TEMP 97.5; O2SAT 92
[2025-01-14 04:00] VITALS: BP 132/78; TEMP 97.5; O2SAT 96
[2025-01-14 06:40] LABS: BASOPHILS % (AUTO) 0.4 % (0.0-2.0); EOSINOPHILS # (AUTO) 0.2 K/uL (0.0-0.7); EOSINOPHILS % (AUTO) 2.8 % (0.0-6.0); HEMATOCRIT 32 % (39-51); HEMOGLOBIN 10.6 g/dL (13.5-17.5); LYMPHOCYTES # (AUTO) 1.5 K/uL (0.8-4.8); LYMPHOCYTES % (AUTO) 17.4 % (20.0-44.0); MEAN CORPUSCULAR HEMOGLOBIN 30 PG (26.0-33.0); MEAN CORPUSCULAR HGB CONC 33 g/dl (31.0-36.0); MEAN CORPUSCULAR VOLUME 91 fL (80-96); MONOCYTES # (AUTO) 1.1 K/uL (0.1-1.30); MONOCYTES % (AUTO) 12.6 % (2.0-12.0); NEUTROPHILS # (AUTO) 5.8 K/uL (1.8-8.9); NEUTROPHILS % (AUTO) 66.8 % (43.0-81.0); PLATELET COUNT (AUTO) 208 K/uL (150-450); RED BLOOD CELL COUNT(AUTO) 3.55 MIL/uL (4.5-6.0); RED CELL DISTRIBUTION WIDTH 16.3 % (11.5-15.0); WHITE BLOOD COUNT (AUTO) 8.7 K/uL (4.3-11.0)
[2025-01-14 07:16] LABS: ALBUMIN 3.7 g/dL (3.4-5.0); BILIRUBIN,TOTAL 0.4 mg/dL (0.2-1.0); CALCIUM, SERUM 8.9 mg/dL (8.5-10.1); CREATININE 7.4 mg/dL (0.6-1.3); MAGNESIUM 2.8 mg/dL (1.8-2.4); PHOSPHORUS 6.3 mg/dL (2.5-4.9); POTASSIUM 4.7 mmol/L (3.5-5.1); TOTAL PROTEIN, SERUM 8.2 g/dL (6.4-8.2)
[2025-01-14 08:00] VITALS: BP 142/81; TEMP 97.5; O2SAT 96
[2025-01-14 12:00] VITALS: BP 92/52; TEMP 97.5; O2SAT 96
[2025-01-14 16:00] VITALS: BP 101/65; TEMP 97.5; O2SAT 96
[2025-01-14 20:00] VITALS: BP 110/60; TEMP 98; O2SAT 97
[2025-01-15] VITALS: BP 115/77; TEMP 98.2; O2SAT 98
[2025-01-15 04:00] VITALS: BP 108/60; TEMP 98.7; O2SAT 97
[2025-01-15 08:00] VITALS: BP 91/47; TEMP 97.9; O2SAT 98
[2025-01-15] MEDS: IV NS 0.9% 500 ML IV ONE (08:55)
[2025-01-15 12:00] VITALS: BP 95/49; TEMP 97.3; O2SAT 100
[2025-01-15 16:00] VITALS: BP 98/50; TEMP 97.5; O2SAT 97
[2025-01-15 20:00] VITALS: BP 105/54; TEMP 98.2; O2SAT 96
[2025-01-15 20:30] LABS: BASOPHILS % (AUTO) 0.3 % (0.0-2.0); EOSINOPHILS # (AUTO) 0.2 K/uL (0.0-0.7); HEMATOCRIT 34 % (39-51); HEMOGLOBIN 10.7 g/dL (13.5-17.5); LYMPHOCYTES # (AUTO) 1.4 K/uL (0.8-4.8); LYMPHOCYTES % (AUTO) 15.9 % (20.0-44.0); MEAN CORPUSCULAR HEMOGLOBIN 30 PG (26.0-33.0); MEAN CORPUSCULAR HGB CONC 32 g/dl (31.0-36.0); MEAN CORPUSCULAR VOLUME 94 fL (80-96); MONOCYTES # (AUTO) 0.8 K/uL (0.1-1.30); MONOCYTES % (AUTO) 9.1 % (2.0-12.0); NEUTROPHILS # (AUTO) 6.4 K/uL (1.8-8.9); NEUTROPHILS % (AUTO) 72.7 % (43.0-81.0); PLATELET COUNT (AUTO) 198 K/uL (150-450); RED BLOOD CELL COUNT(AUTO) 3.61 MIL/uL (4.5-6.0); RED CELL DISTRIBUTION WIDTH 17.4 % (11.5-15.0); WHITE BLOOD COUNT (AUTO) 8.8 K/uL (4.3-11.0)
[2025-01-15 20:42] LABS: CARBON DIOXIDE 18 mmol/L (21-32); CHLORIDE 100 mmol/L (98-107); GLUCOSE 100 mg/dL (74-106); MAGNESIUM 2.5 mg/dL (1.8-2.4); PHOSPHORUS 6.2 mg/dL (2.5-4.9); POTASSIUM 4.9 mmol/L (3.5-5.1); SODIUM SERUM 131 mmol/L (136-145); UREA NITROGEN, BLOOD 49 mg/dL (7-18)
[2025-01-15 20:49] LABS: CREATININE 7.6 mg/dL (0.6-1.3)
[2025-01-15] MEDS: *INSULIN REGULAR(HUMULIN R)HUM 100 UNIT/ML VIAL SQ PRN (22:59)
[2025-01-16] VITALS: BP 111/57; TEMP 98.2; O2SAT 97
[2025-01-16 04:00] VITALS: BP 113/61; TEMP 98.4; O2SAT 97
[2025-01-16 08:00] VITALS: BP 143/72; TEMP 98.1; O2SAT 99
[2025-01-16 13:48] VITALS: BP 90/50; TEMP 98.8; O2SAT 99
[2025-01-16 16:00] VITALS: BP 99/52; TEMP 98.2; O2SAT 98
[2025-01-16 20:00] VITALS: BP 102/60; TEMP 98.6; O2SAT 93
[2025-01-17] VITALS: BP 113/78; TEMP 97.7; O2SAT 95
[2025-01-17 04:00] VITALS: BP 130/62; TEMP 98.1; O2SAT 95
[2025-01-17] MEDS: Z GUARD REMEDY 4 OZ OINT TP PRN (05:31)
[2025-01-17] MEDS: DEXTROSE 50%-WATER 50 ML DISP.SYRIN IV PRN (06:30)
[2025-01-17 08:00] VITALS: BP 97/48; TEMP 97.9; O2SAT 95
[2025-01-17] MEDS: BENAZEPRIL HCL 20 MG TABLET PO SCH (09:00)
[2025-01-17] MEDS: CARVEDILOL 6.25 MG TABLET PO SCH (09:00)
[2025-01-17] MEDS: MIDODRINE HCL (5MG) 5 MG TABLET PO PRN (14:18)
[2025-01-17 16:00] VITALS: BP 114/74; TEMP 98.6; O2SAT 94
[2025-01-17] MEDS: ACETAMINOPHEN 325 MG TABLET PO PRN (16:30)
[2025-01-17 20:00] VITALS: BP 120/62; TEMP 98.4; O2SAT 95
[2025-01-18 04:00] VITALS: BP 124/76; TEMP 99.7; O2SAT 100
[2025-01-18 12:00] VITALS: BP 124/76; TEMP 99.7; O2SAT 100
[2025-01-18 13:29] LABS: CARBON DIOXIDE 20 mmol/L (21-32); CHLORIDE 93 mmol/L (98-107); GLUCOSE 172 mg/dL (74-106); POTASSIUM 4.8 mmol/L (3.5-5.1); SODIUM SERUM 129 mmol/L (136-145); UREA NITROGEN, BLOOD 47 mg/dL (7-18)
[2025-01-18 13:36] LABS: CREATININE 8.2 mg/dL (0.6-1.3)
[2025-01-18] MEDS: ALBUMIN 25% 25 GM in PREMIX 1 EA IV PRN (19:13)
[2025-01-18 20:00] VITALS: BP 102/77; TEMP 98.2
[2025-01-18] MEDS: VANCOMYCIN 1 GM in IV D5W 250ml IV ONE (20:47)
[2025-01-19 04:00] VITALS: BP 98/60; TEMP 97.5; O2SAT 100
[2025-01-19 08:00] VITALS: BP 98/58; TEMP 98.1; O2SAT 98
[2025-01-19 13:17] LABS: BASOPHILS % (AUTO) 0.3 % (0.0-2.0); EOSINOPHILS % (AUTO) 0.5 % (0.0-6.0); HEMATOCRIT 27 % (39-51); LYMPHOCYTES # (AUTO) 1.5 K/uL (0.8-4.8); LYMPHOCYTES % (AUTO) 15.8 % (20.0-44.0); MEAN CORPUSCULAR HEMOGLOBIN 31 PG (26.0-33.0); MEAN CORPUSCULAR HGB CONC 34 g/dl (31.0-36.0); MEAN CORPUSCULAR VOLUME 92 fL (80-96); MONOCYTES # (AUTO) 1.2 K/uL (0.1-1.30); MONOCYTES % (AUTO) 12.8 % (2.0-12.0); NEUTROPHILS # (AUTO) 6.6 K/uL (1.8-8.9); NEUTROPHILS % (AUTO) 70.6 % (43.0-81.0); PLATELET COUNT (AUTO) 200 K/uL (150-450); RED BLOOD CELL COUNT(AUTO) 2.94 MIL/uL (4.5-6.0); RED CELL DISTRIBUTION WIDTH 16.5 % (11.5-15.0); WHITE BLOOD COUNT (AUTO) 9.3 K/uL (4.3-11.0)
[2025-01-19 13:42] LABS: ALBUMIN 3.2 g/dL (3.4-5.0); BILIRUBIN,TOTAL 0.3 mg/dL (0.2-1.0); CALCIUM, SERUM 8.4 mg/dL (8.5-10.1); CREATININE 6.4 mg/dL (0.6-1.3); MAGNESIUM 2.3 mg/dL (1.8-2.4); PHOSPHORUS 4.3 mg/dL (2.5-4.9); POTASSIUM 4.1 mmol/L (3.5-5.1); TOTAL PROTEIN, SERUM 7.4 g/dL (6.4-8.2)
[2025-01-19 16:00] VITALS: BP 132/99; TEMP 97.3; O2SAT 97
[2025-01-19] MEDS: CEFEPIME 1 GM in IV D5W 50 ML IV SCH (16:56)
[2025-01-19 20:00] VITALS: BP 130/98; TEMP 97.9; O2SAT 95
[2025-01-20 04:00] VITALS: BP 103/64; TEMP 97.8; TEMP 97.9; O2SAT 95; O2SAT 96
[2025-01-20 04:17] VITALS: BP 139/94; TEMP 99.9; O2SAT 96
[2025-01-20 08:00] VITALS: BP 99/62; TEMP 98.2; O2SAT 94
[2025-01-20 11:07] LABS: BASOPHILS % (AUTO) 0.5 % (0.0-2.0); EOSINOPHILS # (AUTO) 0.1 K/uL (0.0-0.7); EOSINOPHILS % (AUTO) 1.7 % (0.0-6.0); HEMATOCRIT 29 % (39-51); HEMOGLOBIN 8.3 g/dL (13.5-17.5); LYMPHOCYTES # (AUTO) 1.3 K/uL (0.8-4.8); LYMPHOCYTES % (AUTO) 18.3 % (20.0-44.0); MEAN CORPUSCULAR HEMOGLOBIN 30 PG (26.0-33.0); MEAN CORPUSCULAR HGB CONC 29 g/dl (31.0-36.0); MEAN CORPUSCULAR VOLUME 103 fL (80-96); MONOCYTES # (AUTO) 1.2 K/uL (0.1-1.30); MONOCYTES % (AUTO) 17.1 % (2.0-12.0); NEUTROPHILS # (AUTO) 4.6 K/uL (1.8-8.9); NEUTROPHILS % (AUTO) 62.4 % (43.0-81.0); PLATELET COUNT (AUTO) 197 K/uL (150-450); RED BLOOD CELL COUNT(AUTO) 2.83 MIL/uL (4.5-6.0); WHITE BLOOD COUNT (AUTO) 7.3 K/uL (4.3-11.0)
[2025-01-20 11:21] LABS: ALANINE AMINOTRANSFERASE 19 U/L (12-78); ALBUMIN 2.9 g/dL (3.4-5.0); ALKALINE PHOSPHATASE 53 U/L (46-116); ASPARTATE AMINOTRANSFERASE 50 U/L (15-37); BILIRUBIN,TOTAL 0.4 mg/dL (0.2-1.0); CALCIUM, SERUM 8.1 mg/dL (8.5-10.1); CARBON DIOXIDE 23 mmol/L (21-32); CHLORIDE 97 mmol/L (98-107); GLUCOSE 171 mg/dL (74-106); MAGNESIUM 2.5 mg/dL (1.8-2.4); PHOSPHORUS 5.4 mg/dL (2.5-4.9); POTASSIUM 4.4 mmol/L (3.5-5.1); SODIUM SERUM 135 mmol/L (136-145); TOTAL PROTEIN, SERUM 7.4 g/dL (6.4-8.2); UREA NITROGEN, BLOOD 52 mg/dL (7-18)
[2025-01-20 11:29] LABS: CREATININE 7.9 mg/dL (0.6-1.3)
[2025-01-20 16:00] VITALS: BP 94/50; TEMP 98.2; O2SAT 99
[2025-01-20 20:00] VITALS: BP 96/54; TEMP 98.2; O2SAT 96
[2025-01-20] MEDS: VANCOMYCIN POST DIALYSIS 500MG IV PRN (21:33)
[2025-01-21 04:00] VITALS: BP 104/54; TEMP 98.8; O2SAT 99
[2025-01-21 07:10] LABS: BASOPHILS % (AUTO) 0.4 % (0.0-2.0); EOSINOPHILS # (AUTO) 0.1 K/uL (0.0-0.7); EOSINOPHILS % (AUTO) 2.2 % (0.0-6.0); HEMATOCRIT 25 % (39-51); HEMOGLOBIN 8.3 g/dL (13.5-17.5); LYMPHOCYTES % (AUTO) 17.8 % (20.0-44.0); MEAN CORPUSCULAR HEMOGLOBIN 30 PG (26.0-33.0); MEAN CORPUSCULAR HGB CONC 33 g/dl (31.0-36.0); MEAN CORPUSCULAR VOLUME 91 fL (80-96); MONOCYTES # (AUTO) 0.8 K/uL (0.1-1.30); MONOCYTES % (AUTO) 15.6 % (2.0-12.0); NEUTROPHILS # (AUTO) 3.5 K/uL (1.8-8.9); PLATELET COUNT (AUTO) 230 K/uL (150-450); RED BLOOD CELL COUNT(AUTO) 2.78 MIL/uL (4.5-6.0); RED CELL DISTRIBUTION WIDTH 16.2 % (11.5-15.0); WHITE BLOOD COUNT (AUTO) 5.5 K/uL (4.3-11.0)
[2025-01-21 07:50] LABS: ALBUMIN 4.2 g/dL (3.4-5.0); BILIRUBIN,TOTAL 0.7 mg/dL (0.2-1.0); CALCIUM, SERUM 8.8 mg/dL (8.5-10.1); CREATININE 5.9 mg/dL (0.6-1.3); MAGNESIUM 2.4 mg/dL (1.8-2.4); PHOSPHORUS 3.5 mg/dL (2.5-4.9); TOTAL PROTEIN, SERUM 7.9 g/dL (6.4-8.2)
[2025-01-21 08:10] VITALS: BP_SYST 100; BP_SYST 99; BP_DIAS 48; BP_DIAS 50; TEMP 97.6; O2SAT 97
[2025-01-21 16:05] VITALS: BP 99/49; TEMP 98; O2SAT 97
[2025-01-21 20:58] VITALS: BP 108/52; TEMP 99.5; O2SAT 99
[2025-01-22 04:18] VITALS: BP 117/59; TEMP 98.9; O2SAT 97
[2025-01-22 07:44] LABS: BASOPHILS % (AUTO) 0.5 % (0.0-2.0); EOSINOPHILS # (AUTO) 0.2 K/uL (0.0-0.7); EOSINOPHILS % (AUTO) 2.9 % (0.0-6.0); HEMATOCRIT 25 % (39-51); HEMOGLOBIN 8.1 g/dL (13.5-17.5); LYMPHOCYTES # (AUTO) 1.2 K/uL (0.8-4.8); LYMPHOCYTES % (AUTO) 23.5 % (20.0-44.0); MEAN CORPUSCULAR HEMOGLOBIN 30 PG (26.0-33.0); MEAN CORPUSCULAR HGB CONC 32 g/dl (31.0-36.0); MEAN CORPUSCULAR VOLUME 91 fL (80-96); MONOCYTES # (AUTO) 0.8 K/uL (0.1-1.30); MONOCYTES % (AUTO) 14.6 % (2.0-12.0); NEUTROPHILS # (AUTO) 3.1 K/uL (1.8-8.9); NEUTROPHILS % (AUTO) 58.5 % (43.0-81.0); PLATELET COUNT (AUTO) 253 K/uL (150-450); RED BLOOD CELL COUNT(AUTO) 2.74 MIL/uL (4.5-6.0); RED CELL DISTRIBUTION WIDTH 16.3 % (11.5-15.0); WHITE BLOOD COUNT (AUTO) 5.3 K/uL (4.3-11.0)
[2025-01-22 08:00] VITALS: BP_SYST 109; BP_SYST 99; BP_DIAS 50; BP_DIAS 62; TEMP 97.9; O2SAT 96
[2025-01-22 08:08] LABS: ALANINE AMINOTRANSFERASE 16 U/L (12-78); ALBUMIN 3.7 g/dL (3.4-5.0); ALKALINE PHOSPHATASE 53 U/L (46-116); ASPARTATE AMINOTRANSFERASE 27 U/L (15-37); BILIRUBIN,TOTAL 0.5 mg/dL (0.2-1.0); CALCIUM, SERUM 8.5 mg/dL (8.5-10.1); CARBON DIOXIDE 32 mmol/L (21-32); CHLORIDE 102 mmol/L (98-107); GLUCOSE 138 mg/dL (74-106); MAGNESIUM 2.6 mg/dL (1.8-2.4); POTASSIUM 3.9 mmol/L (3.5-5.1); SODIUM SERUM 143 mmol/L (136-145); TOTAL PROTEIN, SERUM 7.4 g/dL (6.4-8.2); UREA NITROGEN, BLOOD 49 mg/dL (7-18)
[2025-01-22 08:36] LABS: CREATININE 7.7 mg/dL (0.6-1.3)
[2025-01-22 12:31] LABS: EOSINOPHILS % (MANUAL) 3 % (0-4); LYMPHOCYTES % (MANUAL) 16 % (16-48); MONOCYTES % (MANUAL) 11 % (0-11.0); NEUTROPHILS % (MANUAL) 70 (42-76); PLATELET ESTIMATE ADEQUATE
[2025-01-22 12:32] LABS: ANISOCYTOSIS 1+; HYPOCHROMASIA 1+
[2025-01-22 16:34] VITALS: BP 119/61; TEMP 98; O2SAT 93
[2025-01-22 20:00] VITALS: BP 94/77; TEMP 98.6; O2SAT 88
[2025-01-23 04:00] VITALS: BP 101/79; TEMP 98.2; O2SAT 94
[2025-01-23 06:59] LABS: BASOPHILS % (AUTO) 0.4 % (0.0-2.0); EOSINOPHILS # (AUTO) 0.2 K/uL (0.0-0.7); HEMATOCRIT 28 % (39-51); HEMOGLOBIN 9.1 g/dL (13.5-17.5); LYMPHOCYTES # (AUTO) 1.1 K/uL (0.8-4.8); LYMPHOCYTES % (AUTO) 18.9 % (20.0-44.0); MEAN CORPUSCULAR HEMOGLOBIN 30 PG (26.0-33.0); MEAN CORPUSCULAR HGB CONC 33 g/dl (31.0-36.0); MEAN CORPUSCULAR VOLUME 91 fL (80-96); MONOCYTES # (AUTO) 0.7 K/uL (0.1-1.30); MONOCYTES % (AUTO) 11.3 % (2.0-12.0); NEUTROPHILS % (AUTO) 66.4 % (43.0-81.0); PLATELET COUNT (AUTO) 298 K/uL (150-450); RED BLOOD CELL COUNT(AUTO) 3.08 MIL/uL (4.5-6.0); RED CELL DISTRIBUTION WIDTH 16.1 % (11.5-15.0)
[2025-01-23 07:05] LABS: CALCIUM, SERUM 8.7 mg/dL (8.5-10.1); CREATININE 6.9 mg/dL (0.6-1.3); MAGNESIUM 2.3 mg/dL (1.8-2.4); POTASSIUM 4.1 mmol/L (3.5-5.1)
[2025-01-23 08:00] VITALS: BP 119/58; TEMP 98.4; O2SAT 93
[2025-01-23] MEDS ORDERED: LORAZEPAM INJ 2 MG/ML VIAL IV PRN (10:00)
[2025-01-23] MEDS: LORAZEPAM 1 MG TABLET PO PRN (12:14)
[2025-01-23 13:26] LABS: INR 1.19 (0.91-1.10); PARTIAL THROMBOPLASTIN TIME 40.1 SEC (24.3-34.3); PROTHROMBIN TIME 12.5 SECS (9.2-11.1)
[2025-01-23 16:00] VITALS: BP 91/55; TEMP 98.4; O2SAT 99
[2025-01-23 20:00] VITALS: BP 105/71; TEMP 98.8; O2SAT 97
[2025-01-24 04:00] VITALS: BP 110/64; TEMP 98.6; O2SAT 96
[2025-01-24 07:39] LABS: CALCIUM, SERUM 9.2 mg/dL (8.5-10.1); CARBON DIOXIDE 22 mmol/L (21-32); CHLORIDE 100 mmol/L (98-107); GLUCOSE 117 mg/dL (74-106); MAGNESIUM 2.7 mg/dL (1.8-2.4); PHOSPHORUS 5.7 mg/dL (2.5-4.9); POTASSIUM 4.5 mmol/L (3.5-5.1); SODIUM SERUM 141 mmol/L (136-145); UREA NITROGEN, BLOOD 61 mg/dL (7-18)
[2025-01-24 07:41] LABS: BASOPHILS % (AUTO) 0.3 % (0.0-2.0); EOSINOPHILS # (AUTO) 0.2 K/uL (0.0-0.7); HEMATOCRIT 30 % (39-51); HEMOGLOBIN 9.7 g/dL (13.5-17.5); LYMPHOCYTES # (AUTO) 1.5 K/uL (0.8-4.8); LYMPHOCYTES % (AUTO) 17.9 % (20.0-44.0); MEAN CORPUSCULAR HEMOGLOBIN 29 PG (26.0-33.0); MEAN CORPUSCULAR HGB CONC 32 g/dl (31.0-36.0); MEAN CORPUSCULAR VOLUME 92 fL (80-96); MONOCYTES % (AUTO) 11.9 % (2.0-12.0); NEUTROPHILS # (AUTO) 5.6 K/uL (1.8-8.9); NEUTROPHILS % (AUTO) 67.9 % (43.0-81.0); PLATELET COUNT (AUTO) 342 K/uL (150-450); RED BLOOD CELL COUNT(AUTO) 3.29 MIL/uL (4.5-6.0); RED CELL DISTRIBUTION WIDTH 16.2 % (11.5-15.0); WHITE BLOOD COUNT (AUTO) 8.2 K/uL (4.3-11.0)
[2025-01-24 07:57] LABS: CREATININE 9.4 mg/dL (0.6-1.3)
[2025-01-24 08:09] VITALS: BP 105/71; TEMP 97.5; O2SAT 100
[2025-01-24] MEDS: ALBUMIN 25% 25 GM in PREMIX 1 EA IV PRN (11:53)
[2025-01-24 12:15] VITALS: BP 101/85; TEMP 97.5; O2SAT 98
[2025-01-24] MEDS: ALTEPLASE CATHFLO 2 MG/VIAL XX ONE (12:32)
[2025-01-24 16:10] VITALS: BP 102/79; TEMP 97.3; O2SAT 100
[2025-01-24 16:42] LABS: THYROID STIMULATING HORMONE 1.05 uIU/mL (0.358-3.74)
[2025-01-24 20:00] VITALS: BP 102/53; TEMP 97.3; O2SAT 95
[2025-01-25 04:00] VITALS: BP 107/70; TEMP 97.9; O2SAT 94
[2025-01-25 07:09] LABS: BASOPHILS % (AUTO) 0.2 % (0.0-2.0); EOSINOPHILS # (AUTO) 0.2 K/uL (0.0-0.7); EOSINOPHILS % (AUTO) 2.2 % (0.0-6.0); HEMATOCRIT 26 % (39-51); HEMOGLOBIN 8.5 g/dL (13.5-17.5); LYMPHOCYTES # (AUTO) 1.3 K/uL (0.8-4.8); LYMPHOCYTES % (AUTO) 13.7 % (20.0-44.0); MEAN CORPUSCULAR HEMOGLOBIN 30 PG (26.0-33.0); MEAN CORPUSCULAR HGB CONC 32 g/dl (31.0-36.0); MEAN CORPUSCULAR VOLUME 92 fL (80-96); MONOCYTES # (AUTO) 1.1 K/uL (0.1-1.30); MONOCYTES % (AUTO) 11.6 % (2.0-12.0); NEUTROPHILS # (AUTO) 6.8 K/uL (1.8-8.9); NEUTROPHILS % (AUTO) 72.3 % (43.0-81.0); PLATELET COUNT (AUTO) 344 K/uL (150-450); RED BLOOD CELL COUNT(AUTO) 2.84 MIL/uL (4.5-6.0); RED CELL DISTRIBUTION WIDTH 16.3 % (11.5-15.0); WHITE BLOOD COUNT (AUTO) 9.4 K/uL (4.3-11.0)
[2025-01-25 07:37] LABS: CALCIUM, SERUM 8.9 mg/dL (8.5-10.1); CARBON DIOXIDE 21 mmol/L (21-32); CHLORIDE 101 mmol/L (98-107); GLUCOSE 121 mg/dL (74-106); MAGNESIUM 2.4 mg/dL (1.8-2.4); PHOSPHORUS 5.5 mg/dL (2.5-4.9); POTASSIUM 4.6 mmol/L (3.5-5.1); SODIUM SERUM 143 mmol/L (136-145)
[2025-01-25 07:59] LABS: UREA NITROGEN, BLOOD 65 mg/dL (7-18)
[2025-01-25 08:00] VITALS: BP 127/70; TEMP 97.9; O2SAT 93
[2025-01-25 08:21] LABS: CREATININE 9.7 mg/dL (0.6-1.3)
[2025-01-25] MEDS ORDERED: MEROPENEM 500 MG in IV NS 0.9% 50 ML IV SCH (12:00)
[2025-01-25 14:28] LABS: CSF APPEARANCE CLEAR (CLEAR); CSF COLOR COLORLESS (COLORLESS); CSF VOLUME 13.2 mL; CSF WHITE BLOOD CELL COUNT 2 /cumm (0-5); CSF WHITE BLOOD CELL COUNT 3 /cumm (0-5)
[2025-01-25 16:00] VITALS: BP 115/93; TEMP 97.9; O2SAT 100
[2025-01-25] MEDS: MEROPENEM 500 MG in IV NS 0.9% 50 ML IV SCH (16:51)
[2025-01-25 20:00] VITALS: BP 81/66; TEMP 99.3; O2SAT 93
[2025-01-26 04:00] VITALS: BP 104/89; TEMP 98.8; O2SAT 95
[2025-01-26 07:07] LABS: BASOPHILS % (AUTO) 0.4 % (0.0-2.0); EOSINOPHILS # (AUTO) 0.1 K/uL (0.0-0.7); EOSINOPHILS % (AUTO) 1.3 % (0.0-6.0); HEMATOCRIT 27 % (39-51); HEMOGLOBIN 8.8 g/dL (13.5-17.5); LYMPHOCYTES # (AUTO) 1.4 K/uL (0.8-4.8); LYMPHOCYTES % (AUTO) 17.9 % (20.0-44.0); MEAN CORPUSCULAR HEMOGLOBIN 29 PG (26.0-33.0); MEAN CORPUSCULAR HGB CONC 32 g/dl (31.0-36.0); MEAN CORPUSCULAR VOLUME 91 fL (80-96); MONOCYTES # (AUTO) 1.2 K/uL (0.1-1.30); MONOCYTES % (AUTO) 15.3 % (2.0-12.0); NEUTROPHILS # (AUTO) 5.2 K/uL (1.8-8.9); NEUTROPHILS % (AUTO) 65.1 % (43.0-81.0); PLATELET COUNT (AUTO) 341 K/uL (150-450); RED BLOOD CELL COUNT(AUTO) 2.98 MIL/uL (4.5-6.0); RED CELL DISTRIBUTION WIDTH 16.1 % (11.5-15.0); WHITE BLOOD COUNT (AUTO) 7.9 K/uL (4.3-11.0)
[2025-01-26 07:38] LABS: CARBON DIOXIDE 23 mmol/L (21-32); CHLORIDE 101 mmol/L (98-107); GLUCOSE 132 mg/dL (74-106); MAGNESIUM 2.4 mg/dL (1.8-2.4); PHOSPHORUS 3.5 mg/dL (2.5-4.9); SODIUM SERUM 140 mmol/L (136-145); UREA NITROGEN, BLOOD 51 mg/dL (7-18)
[2025-01-26 08:00] VITALS: BP 118/72; TEMP 97.9; O2SAT 90
[2025-01-26 08:16] LABS: CREATININE 7.9 mg/dL (0.6-1.3)
[2025-01-26 16:00] VITALS: BP 101/60; TEMP 98.1; O2SAT 92
[2025-01-26 20:00] VITALS: BP 79/55; TEMP 97.7; O2SAT 100
[2025-01-27 04:00] VITALS: BP 94/61; TEMP 98.8; O2SAT 98
[2025-01-27 05:12] LABS: CSF GLUCOSE 82 mg/dL (40-70); CSF PROTEIN 47.26 mg/dL (15-45)
[2025-01-27 08:00] VITALS: BP 125/60; TEMP 97.9; O2SAT 97
[2025-01-27 16:00] VITALS: BP 118/56; TEMP 98.2; O2SAT 96
[2025-01-27 20:00] VITALS: BP 130/90; TEMP 99.1; O2SAT 96; O2SAT 97
[2025-01-28] VITALS (7 sets, daily range): BP systolic 94–123; BP diastolic 43–82; TEMP 97.7–98.9; O2SAT 95–99
[2025-01-28] MEDS: ALBUTEROL HALF STRENGTH 1.25 MG/3 ML VIAL.NEB NEB PRN (03:18)
[2025-01-28] MEDS: IPRATROPIUM NEB FS 0.5 MG/2.5 ML AMPUL.NEB NEB PRN (03:19)
[2025-01-28 06:58] LABS: CALCIUM, SERUM 9.2 mg/dL (8.5-10.1); CARBON DIOXIDE 25 mmol/L (21-32); CHLORIDE 101 mmol/L (98-107); GLUCOSE 82 mg/dL (74-106); MAGNESIUM 2.5 mg/dL (1.8-2.4); PHOSPHORUS 4.3 mg/dL (2.5-4.9); SODIUM SERUM 143 mmol/L (136-145); UREA NITROGEN, BLOOD 51 mg/dL (7-18)
[2025-01-28 06:59] LABS: BASOPHILS # (AUTO) 0.1 K/uL (0.0-0.2); BASOPHILS % (AUTO) 0.5 % (0.0-2.0); EOSINOPHILS # (AUTO) 0.2 K/uL (0.0-0.7); EOSINOPHILS % (AUTO) 1.3 % (0.0-6.0); HEMATOCRIT 25 % (39-51); HEMOGLOBIN 8.2 g/dL (13.5-17.5); LYMPHOCYTES # (AUTO) 1.7 K/uL (0.8-4.8); LYMPHOCYTES % (AUTO) 13.9 % (20.0-44.0); MEAN CORPUSCULAR HEMOGLOBIN 30 PG (26.0-33.0); MEAN CORPUSCULAR HGB CONC 33 g/dl (31.0-36.0); MEAN CORPUSCULAR VOLUME 91 fL (80-96); MONOCYTES # (AUTO) 1.1 K/uL (0.1-1.30); MONOCYTES % (AUTO) 8.8 % (2.0-12.0); NEUTROPHILS # (AUTO) 9.4 K/uL (1.8-8.9); NEUTROPHILS % (AUTO) 75.5 % (43.0-81.0); PLATELET COUNT (AUTO) 380 K/uL (150-450); RED BLOOD CELL COUNT(AUTO) 2.76 MIL/uL (4.5-6.0); RED CELL DISTRIBUTION WIDTH 16.1 % (11.5-15.0); WHITE BLOOD COUNT (AUTO) 12.4 K/uL (4.3-11.0)
[2025-01-28 07:29] LABS: CREATININE 8.4 mg/dL (0.6-1.3)
[2025-01-29 01:07] LABS: *HSV 1 DNA PCR CSF Negative (Negative); *HSV 2 DNA PCR CSF Negative (Negative)
[2025-01-29 04:00] VITALS: BP 123/51; TEMP 98.2; O2SAT 98
[2025-01-29 04:25] VITALS: O2SAT 97
[2025-01-29 08:00] VITALS: BP 96/52; TEMP 98.2; O2SAT 97
[2025-01-29 11:07] LABS: *WEST NILE VIRUS IgG, CSF Negative (Negative); *WEST NILE VIRUS IgM, CSF Negative (Negative)
[2025-01-29] MEDS: MIDODRINE HCL (5MG) 5 MG TABLET PO SCH (11:26)
[2025-01-29 12:11] LABS: VDRL, CSF Non Reactive (Non Rea:<1:1)
[2025-01-29 12:58] LABS: BASOPHILS % (AUTO) 0.4 % (0.0-2.0); EOSINOPHILS # (AUTO) 0.2 K/uL (0.0-0.7); EOSINOPHILS % (AUTO) 1.2 % (0.0-6.0); HEMATOCRIT 26 % (39-51); HEMOGLOBIN 8.5 g/dL (13.5-17.5); LYMPHOCYTES # (AUTO) 1.7 K/uL (0.8-4.8); LYMPHOCYTES % (AUTO) 13.7 % (20.0-44.0); MEAN CORPUSCULAR HEMOGLOBIN 30 PG (26.0-33.0); MEAN CORPUSCULAR HGB CONC 33 g/dl (31.0-36.0); MEAN CORPUSCULAR VOLUME 92 fL (80-96); MONOCYTES # (AUTO) 1.5 K/uL (0.1-1.30); MONOCYTES % (AUTO) 12.5 % (2.0-12.0); NEUTROPHILS # (AUTO) 8.9 K/uL (1.8-8.9); NEUTROPHILS % (AUTO) 72.2 % (43.0-81.0); PLATELET COUNT (AUTO) 365 K/uL (150-450); RED BLOOD CELL COUNT(AUTO) 2.84 MIL/uL (4.5-6.0); RED CELL DISTRIBUTION WIDTH 16.3 % (11.5-15.0); WHITE BLOOD COUNT (AUTO) 12.3 K/uL (4.3-11.0)
[2025-01-29 16:00] VITALS: BP 108/41; TEMP 97.9; O2SAT 95
[2025-01-29] MEDS: IV D5/ 0.9% NACL 1,000 ML IV SCH (16:30)
[2025-01-29 20:00] VITALS: BP 75/15; TEMP 98; O2SAT 93
[2025-01-30 04:00] VITALS: BP 80/41; TEMP 97.9; O2SAT 94
[2025-01-30] MEDS: ALBUMIN 25% 12.5 GM/50 ML BOTTLE IV ONE (07:12)
[2025-01-30 08:00] VITALS: BP 114/39; TEMP 98; O2SAT 91
[2025-01-30 08:16] LABS: BASOPHILS % (AUTO) 0.4 % (0.0-2.0); EOSINOPHILS # (AUTO) 0.2 K/uL (0.0-0.7); EOSINOPHILS % (AUTO) 1.7 % (0.0-6.0); HEMATOCRIT 23 % (39-51); HEMOGLOBIN 7.6 g/dL (13.5-17.5); LYMPHOCYTES % (AUTO) 11.2 % (20.0-44.0); MEAN CORPUSCULAR HEMOGLOBIN 30 PG (26.0-33.0); MEAN CORPUSCULAR HGB CONC 33 g/dl (31.0-36.0); MEAN CORPUSCULAR VOLUME 91 fL (80-96); MONOCYTES # (AUTO) 0.8 K/uL (0.1-1.30); MONOCYTES % (AUTO) 8.3 % (2.0-12.0); NEUTROPHILS # (AUTO) 7.2 K/uL (1.8-8.9); NEUTROPHILS % (AUTO) 78.4 % (43.0-81.0); PLATELET COUNT (AUTO) 341 K/uL (150-450); RED CELL DISTRIBUTION WIDTH 15.7 % (11.5-15.0); WHITE BLOOD COUNT (AUTO) 9.1 K/uL (4.3-11.0)
[2025-01-30] MEDS: PANTOPRAZOLE 40 MG VIAL IV SCH (08:20)
[2025-01-30 16:00] VITALS: BP 92/42; TEMP 97.7; O2SAT 92
[2025-01-30 20:00] VITALS: BP 90/31; TEMP 98.5; O2SAT 96
[2025-01-31 04:00] VITALS: BP 94/62; TEMP 98; O2SAT 96
[2025-01-31 08:00] VITALS: BP 100/55; TEMP 97.9; O2SAT 100
[2025-01-31 08:50] LABS: BASOPHILS % (AUTO) 0.5 % (0.0-2.0); EOSINOPHILS # (AUTO) 0.2 K/uL (0.0-0.7); EOSINOPHILS % (AUTO) 2.2 % (0.0-6.0); HEMATOCRIT 25 % (39-51); HEMOGLOBIN 7.4 g/dL (13.5-17.5); LYMPHOCYTES # (AUTO) 2.7 K/uL (0.8-4.8); LYMPHOCYTES % (AUTO) 29.1 % (20.0-44.0); MEAN CORPUSCULAR HEMOGLOBIN 30 PG (26.0-33.0); MEAN CORPUSCULAR HGB CONC 30 g/dl (31.0-36.0); MEAN CORPUSCULAR VOLUME 100 fL (80-96); MONOCYTES # (AUTO) 1.7 K/uL (0.1-1.30); MONOCYTES % (AUTO) 18.6 % (2.0-12.0); NEUTROPHILS # (AUTO) 4.6 K/uL (1.8-8.9); NEUTROPHILS % (AUTO) 49.6 % (43.0-81.0); PLATELET COUNT (AUTO) 298 K/uL (150-450); RED BLOOD CELL COUNT(AUTO) 2.49 MIL/uL (4.5-6.0); RED CELL DISTRIBUTION WIDTH 17.1 % (11.5-15.0); WHITE BLOOD COUNT (AUTO) 9.3 K/uL (4.3-11.0)
[2025-01-31] MEDS: FUROSEMIDE 20 MG/2 ML VIAL IV SCH (09:00)
[2025-01-31 09:08] LABS: CALCIUM, SERUM 8.5 mg/dL (8.5-10.1); CARBON DIOXIDE 22 mmol/L (21-32); CHLORIDE 106 mmol/L (98-107); GLUCOSE 141 mg/dL (74-106); POTASSIUM 3.7 mmol/L (3.5-5.1); SODIUM SERUM 143 mmol/L (136-145); UREA NITROGEN, BLOOD 51 mg/dL (7-18)
[2025-01-31 09:17] LABS: CREATININE 7.8 mg/dL (0.6-1.3)
[2025-01-31] MEDS ORDERED: IV D5/ 0.9% NACL 1,000 ML IV PRN (10:09)
[2025-01-31 12:00] VITALS: BP 111/43; TEMP 98; O2SAT 100
[2025-01-31 16:00] VITALS: BP 112/42; TEMP 98; O2SAT 94
[2025-02-01] MEDS ORDERED: PANTOPRAZOLE 40 MG TABLET.DR PO SCH (07:30)
== END 2025-01-31 15:58 | DRG 189 ==
LOC: ER 09:38 → TELE1 13:41 → MEDSG1 01-17 09:55 → TELE1 01-30 19:24
PROVIDERS: ADMIT Student in an Organized Health Care Education/Training Program; ATTEND Internal Medicine
PROC: 5A1D70Z Performance of Urinary Filtration, Intermittent, Less than 6 Hours Per Day (ICD-10-PCS; principal; 2025-01-12)
PROC: 009U3ZX Drainage of Spinal Canal, Percutaneous Approach, Diagnostic (ICD-10-PCS; 2025-01-25)
DX: J96.01 Acute respiratory failure with hypoxia (principal); N18.6 End stage renal disease; G93.41 Metabolic encephalopathy; I69.354 Hemiplegia and hemiparesis following cerebral infarction affecting left non-dominant side; I13.2 Hypertensive heart and chronic kidney disease with heart failure and with stage 5 chronic kidney disease, or end stage renal disease; E87.1 Hypo-osmolality and hyponatremia; N39.0 Urinary tract infection, site not specified; Z16.12 Extended spectrum beta lactamase (ESBL) resistance; I50.9 Heart failure, unspecified; E11.22 Type 2 diabetes mellitus with diabetic chronic kidney disease; I25.10 Atherosclerotic heart disease of native coronary artery without angina pectoris; K21.9 Gastro-esophageal reflux disease without esophagitis; M89.8X9 Other specified disorders of bone, unspecified site; Z74.01 Bed confinement status; Z99.2 Dependence on renal dialysis; M62.562 Muscle wasting and atrophy, not elsewhere classified, left lower leg; M62.561 Muscle wasting and atrophy, not elsewhere classified, right lower leg; Z79.899 Other long term (current) drug therapy; G47.30 Sleep apnea, unspecified; Z98.890 Other specified postprocedural states; Z87.19 Personal history of other diseases of the digestive system; Z79.84 Long term (current) use of oral hypoglycemic drugs; Z79.01 Long term (current) use of anticoagulants; D63.8 Anemia in other chronic diseases classified elsewhere; E78.5 Hyperlipidemia, unspecified; E03.9 Hypothyroidism, unspecified; M62.49 Contracture of muscle, multiple sites; I48.91 Unspecified atrial fibrillation; F01.50 Vascular dementia, unspecified severity, without behavioral disturbance, psychotic disturbance, mood disturbance, and anxiety; Z78.1 Physical restraint status; B96.20 Unspecified Escherichia coli [E. coli] as the cause of diseases classified elsewhere; E87.5 Hyperkalemia
CPT/HCPCS: 31720; 36415; 36600; 70450-TC; 71045-TC; 80048-TC; 80053-TC; 80202-TC; 82140-TC; 82607-TC; 82803-TC; 82962-TC; 83605-TC; 83735-TC; 83880; 83921; 84100-TC; 84443-TC; 84484-TC; 85025-TC; 85378-TC; 85730-TC; 86592; 86788; 86789; 87040-TC; 87070-TC; 87081-TC; 87086-TC; 87186-TC; 87205-TC; 89051-TC; 90935-TC; 92507-TC; 92521; 92526; 92611-TC; 93970-TC; 94760-TC; 94761-TC; 94799-TC; A4216; A4223; A6213; G0378; J0692; J1644; J1650; J1815; J2185; J2470; J2997; J3370; J3490; J7030; J7040; J7042; J7050; J7060; J7070; P9047; Q9967

== ENCOUNTER 2025-04-09 15:25 | Inpatient (IN) | payer MEDICARE, OTHER ==
[~2025-04-09] VITALS: Ht 162.6 cm; Wt 71.7 kg
[~2025-04-09 15:25] MED LIST changes: +ACET-73 GT; -ACET-73 PO; +APIX2.5T GT; -APIX2.5T PO; +BACL10TA GT; -BACL10TA PO; +BENA20TA9 GT; -BENA20TA9 PO; -DOCU100C36 PO; +DOCU100T2 PO; -EPOE1VIA7 SQ; +FINA5TAB11 GT; -FINA5TAB11 PO; +FOLI0.8T2 GT; -FOLI0.8T2 PO; -FUNGI NAIL TP; +FURO-145 GT; -FURO-145 PO; +LOPE-195 GT; +MELA5TAB GT; -MELA5TAB PO; +PREG75CA GT; -PREG75CA PO; -SULF1TAB48 PO; -TRAM50TA2 PO; -VADADUSTAT PO
[2025-04-09] MEDS: ACETAMINOPHEN ES 500 MG TABLET PO ONE (16:00)
[2025-04-09 16:22] LABS: PLATELET COUNT (AUTO) 215 K/uL (150-450); RED BLOOD CELL COUNT(AUTO) 4.18 MIL/uL (4.5-6.0); RED CELL DISTRIBUTION WIDTH 18.3 % (11.5-15.0); WHITE BLOOD COUNT (AUTO) 14.6 K/uL (4.3-11.0)
[2025-04-09 16:25] LABS: APPEARANCE,URINE CLOUDY (CLEAR)
[2025-04-09 16:26] LABS: BLOOD, URINE 3+ Ery/uL (NEGATIVE)
[2025-04-09 16:27] LABS: LEUKOCYTE ESTERASE ,URINE 3+ (NEGATIVE); NITRITE, URINE POSITIVE (NEGATIVE); UGLUCOSE NEGATIVE (NEGATIVE)
[2025-04-09 16:28] LABS: ADD URINE CULTURE YES; SQUAMOUS EPITHELIAL CELL,UR Rare /HPF (None Seen)
[2025-04-09 16:29] LABS: HYALINE CASTS, URINE Moderate /LPF (None Seen); URINE AMORPHOUS PHOSPHATES Many /HPF (None Seen)
[2025-04-09 16:30] LABS: CALCIUM, SERUM 7.3 mg/dL (8.5-10.1); CREATININE 4.2 mg/dL (0.6-1.3); SODIUM SERUM 129 mmol/L (136-145)
[2025-04-09 16:32] LABS: UREA NITROGEN, BLOOD 114 mg/dL (7-18)
[2025-04-09 16:34] LABS: INR 1.17 (0.91-1.10)
[2025-04-09] MEDS ORDERED: ACETAMINOPHEN ES 500 MG TABLET ONE (16:34)
[2025-04-09 16:36] LABS: ASPARTATE AMINOTRANSFERASE 25 U/L (15-37); TOTAL PROTEIN, SERUM 7.6 g/dL (6.4-8.2)
[2025-04-09 16:38] LABS: LACTIC ACID 1.5 mmol/L (0.4-2.0)
[2025-04-09] MEDS ORDERED: QUET25TA GT (16:45)
[2025-04-09] MEDS ORDERED: ALBU2.5V38 IH (16:45)
[2025-04-09] MEDS ORDERED: DOCU50LI GT (16:45)
[2025-04-09] MEDS ORDERED: DRON400T6 GT (16:45)
[2025-04-09] MEDS ORDERED: EPOE1VIA12 SQ (16:45)
[2025-04-09] MEDS ORDERED: INSU100V42 SQ (16:45)
[2025-04-09] MEDS ORDERED: BISA10SU11 RC (16:45)
[2025-04-09] MEDS ORDERED: DIPH25TA62 GT (16:45)
[2025-04-09] MEDS ORDERED: METO25TA6 GT (16:45)
[2025-04-09] MEDS ORDERED: LEVA0.6320 IH (16:45)
[2025-04-09] MEDS ORDERED: LINA5TAB GT (16:45)
[2025-04-09] MEDS ORDERED: MEROPENEM 1 G in IV NS 0.9% 100 ML IV SCH (17:00)
[2025-04-09] MEDS: MEROPENEM 500 MG in IV NS 0.9% 50 ML IV ONE (17:05)
[2025-04-09 17:06] LABS: CALCIUM, SERUM 7.2 mg/dL (8.5-10.1); CREATININE 4.3 mg/dL (0.6-1.3); SODIUM SERUM 130 mmol/L (136-145)
[2025-04-09 17:08] LABS: UREA NITROGEN, BLOOD 112 mg/dL (7-18)
[2025-04-09] MEDS ORDERED: ACETAMINOPHEN 650 MG/SUPP.RECT RC ONE (17:21)
[2025-04-09] MEDS: ACETAMINOPHEN 650 MG/20.3 ML UDC GT PRN (17:21)
[2025-04-09] MEDS: Calcium Gluconate 1GM/10ML 4.65 MEQ in IV NS 0.9% 100 ML IV ONE (17:28)
[2025-04-09] MEDS ORDERED: FUROSEMIDE 40 MG/4 ML VIAL ONE (17:31)
[2025-04-09] MEDS ORDERED: DEXTROSE 50%-WATER 50 ML DISP.SYRIN ONE (17:32)
[2025-04-09] MEDS: DEXTROSE 50%-WATER 50 ML DISP.SYRIN IV ONE (17:38)
[2025-04-09] MEDS: FUROSEMIDE 40 MG/4 ML VIAL IV ONE (17:39)
[2025-04-09] MEDS ORDERED: ALBUTEROL FS 2.5 MG/3 ML VIAL.NEB ONE (17:39)
[2025-04-09 17:43] VITALS: O2SAT 98
[2025-04-09] MEDS: ALBUTEROL FS 2.5 MG/3 ML VIAL.NEB NEB ONE (17:43)
[2025-04-09] MEDS: INSULIN REGULAR, HUMAN 100 UNIT/ML 10 ML VIAL IV ONE (17:48)
[2025-04-09 17:49] VITALS: O2SAT 99
[2025-04-09] MEDS ORDERED: ONDANSETRON HCL/PF 4 MG/2 ML VIAL IVP PRN (19:30)
[2025-04-09] MEDS ORDERED: MAG HYDROX/AL HYDROX/SIMETH 30 ML UDC PO PRN (19:30)
[2025-04-09] MEDS ORDERED: Z GUARD REMEDY 4 OZ OINT TP PRN (19:30)
[2025-04-09] MEDS ORDERED: ZOLPIDEM TARTRATE 5 MG TABLET PO PRN (19:30)
[2025-04-09] MEDS ORDERED: MAGNESIUM HYDROXIDE 30 ML UDC PO PRN (19:30)
[2025-04-09 20:08] VITALS: BP 106/52; TEMP 97.9; O2SAT 96
[2025-04-10 00:12] VITALS: BP 121/68; TEMP 97.7; O2SAT 100
[2025-04-10] MEDS ORDERED: DEXTROSE 50%-WATER 50 ML DISP.SYRIN IV PRN (00:30)
[2025-04-10 00:34] LABS: CALCIUM, SERUM 8.2 mg/dL (8.5-10.1); CREATININE 1.5 mg/dL (0.6-1.3); SODIUM SERUM 131.0 mmol/L (136-145); UREA NITROGEN, BLOOD 35.0 mg/dL (7-18)
[2025-04-10 04:17] VITALS: BP 122/73; TEMP 98.2; O2SAT 100
[2025-04-10] MEDS: BLOOD SUGAR DIAGNOSTIC 1 EACH STRIP IN SCH (07:45)
[2025-04-10 08:00] VITALS: BP 108/58; TEMP 98.7; O2SAT 98
[2025-04-10] MEDS: MEROPENEM 500 MG in IV NS 0.9% 50 ML IV SCH (08:39)
[2025-04-10] MEDS: THERAHONEY GEL 1.5 OZ TUBE TP SCH (08:39)
[2025-04-10] MEDS: POTASSIUM CL. PREMIX PERIPHER. 50 ML IV SCH (09:35)
[2025-04-10 12:00] VITALS: BP 94/65; TEMP 98.7; O2SAT 98
[2025-04-10] MEDS: GLUCERNA 1.5 1,000 ML BOTTLE GT SCH (14:15)
[2025-04-10 16:00] VITALS: BP 111/95; TEMP 98.7; O2SAT 96
[2025-04-10 20:00] VITALS: BP 149/71; TEMP 99.3; O2SAT 96
[2025-04-10] MEDS: INSULIN REGULAR, HUMAN 100 UNIT/ML 3 ML VIAL SQ PRN (22:08)
[2025-04-10] MEDS: ACETAMINOPHEN 325 MG TABLET PO PRN (23:56)
[2025-04-11] VITALS: BP 145/65; TEMP 98.8; O2SAT 96
[2025-04-11 04:00] VITALS: BP 140/65; TEMP 98; O2SAT 96
[2025-04-11 07:17] LABS: PLATELET COUNT (AUTO) 231 K/uL (150-450); RED BLOOD CELL COUNT(AUTO) 4.04 MIL/uL (4.5-6.0); RED CELL DISTRIBUTION WIDTH 18.1 % (11.5-15.0); WHITE BLOOD COUNT (AUTO) 8.6 K/uL (4.3-11.0)
[2025-04-11 08:00] VITALS: BP 148/67; TEMP 97.9; O2SAT 97
[2025-04-11 08:13] LABS: CALCIUM, SERUM 7.5 mg/dL (8.5-10.1); CREATININE 3.3 mg/dL (0.6-1.3); UREA NITROGEN, BLOOD 78.0 mg/dL (7-18)
[2025-04-11 08:25] LABS: SODIUM SERUM 132.0 mmol/L (136-145)
[2025-04-11 10:54] LABS: EOSINOPHILS % (MANUAL) 10 % (0-4); LYMPHOCYTES % (MANUAL) 15 % (16-48); MONOCYTES % (MANUAL) 8 % (0-11.0); NEUTROPHILS % (MANUAL) 67 (42-76)
[2025-04-11 10:55] LABS: PLATELET ESTIMATE ADEQUATE
[2025-04-11 12:00] VITALS: BP 152/78; TEMP 97.7; O2SAT 100
[2025-04-11 16:00] VITALS: BP 142/77; TEMP 98.2; O2SAT 98
[2025-04-11] MEDS: NEPRO 1,000 ML BOTTLE GT PRN (18:54)
[2025-04-11 20:00] VITALS: BP 148/72; TEMP 98.6; O2SAT 97
[2025-04-11] MEDS: MUPIROCIN OINT 2% 22 GM TUBE NS SCH (21:29)
[2025-04-12] VITALS: BP 140/75; TEMP 98.4; O2SAT 98
[2025-04-12 04:00] VITALS: BP 141/73; TEMP 98.4; O2SAT 97
[2025-04-12 08:00] VITALS: BP 147/70; TEMP 99; O2SAT 97
[2025-04-12 12:00] VITALS: BP 146/79; TEMP 98.2; O2SAT 98
[2025-04-12 12:45] LABS: PLATELET COUNT (AUTO) 224 K/uL (150-450); RED BLOOD CELL COUNT(AUTO) 4.34 MIL/uL (4.5-6.0); RED CELL DISTRIBUTION WIDTH 18.4 % (11.5-15.0); WHITE BLOOD COUNT (AUTO) 7.0 K/uL (4.3-11.0)
[2025-04-12 14:21] LABS: ASPARTATE AMINOTRANSFERASE 30.0 U/L (15-37); CALCIUM, SERUM 7.9 mg/dL (8.5-10.1); CREATININE 2.9 mg/dL (0.6-1.3); PHOSPHORUS 4.5 mg/dL (2.5-4.9); SODIUM SERUM 138.0 mmol/L (136-145); TOTAL PROTEIN, SERUM 7.9 g/dL (6.4-8.2); UREA NITROGEN, BLOOD 60.0 mg/dL (7-18)
[2025-04-12] MEDS: CEFTRIAXONE 1 G in IV D5W 50 ML IV SCH (15:10)
[2025-04-12 16:00] VITALS: BP 153/87; TEMP 98.4; O2SAT 96
[2025-04-12 20:00] VITALS: BP 149/70; TEMP 97.9; O2SAT 99
[2025-04-13] VITALS: BP 156/91; TEMP 97.9; O2SAT 100
[2025-04-13 04:00] VITALS: BP 159/79; TEMP 97.9; O2SAT 98
[2025-04-13 08:00] VITALS: BP 165/82; TEMP 97.9; O2SAT 98
[2025-04-13] MEDS: CLONIDINE HCL 0.1 MG TABLET PO PRN (10:28)
[2025-04-13 12:00] VITALS: BP 138/80; TEMP 98.1; O2SAT 100
[2025-04-13 16:00] VITALS: BP 98/76; TEMP 97.9; O2SAT 98
[2025-04-13] MEDS ORDERED: POLYVINYL ALCOHOL 15 ML BOTTLE EACHEYE PRN (16:00)
[2025-04-13] MEDS: POLYVINYL ALCOHOL 15 ML BOTTLE LEFTEYE PRN (16:44)
[2025-04-13 20:00] VITALS: BP 127/76; TEMP 98.4; O2SAT 97
[2025-04-13] MEDS: *INSULIN REGULAR(HUMULIN R)HUM 100 UNIT/ML VIAL SQ PRN (21:21)
[2025-04-14] VITALS: BP 134/75; TEMP 98.2; O2SAT 99
[2025-04-14 04:00] VITALS: BP 119/67; TEMP 98.2; O2SAT 99
[2025-04-14 08:00] VITALS: BP 130/70; TEMP 98.4; O2SAT 100
[2025-04-14 12:00] VITALS: BP 121/70; TEMP 98.6; O2SAT 99
[2025-04-14 16:00] VITALS: BP 139/69; TEMP 97.5; O2SAT 99
[2025-04-14 20:00] VITALS: BP 125/69; TEMP 98.8; O2SAT 98
[2025-04-15] VITALS: BP 102/72; TEMP 98.4; O2SAT 98
[2025-04-15 04:00] VITALS: BP 147/73; TEMP 98.8; O2SAT 98
[2025-04-15 08:00] VITALS: BP 137/73; TEMP 98.2; O2SAT 99
[2025-04-15 10:06] LABS: FREE PSA 0.08 ng/mL (0.00-45); PROSTATE SPECIFIC ANTIGEN SCR 0.21 ng/mL (0.00-4.00)
[2025-04-15 12:00] VITALS: BP 138/63; TEMP 97.9; O2SAT 100
[2025-04-15 16:00] VITALS: BP 118/57; TEMP 98.1; O2SAT 99
[2025-04-15] MEDS: ALBUMIN 25% 25 GM in PREMIX 1 EA IV PRN (16:08)
[2025-04-15] MEDS: ALTEPLASE CATHFLO 2 MG/VIAL XX ONE (16:08)
== END 2025-04-15 19:25 | DRG 871 ==
LOC: ER 15:34 → MEDSG1 16:35 → TELE1 19:59
PROVIDERS: ADMIT Registered Nurse Psychiatric/Mental Health; ATTEND Internal Medicine
PROC: 5A1D70Z Performance of Urinary Filtration, Intermittent, Less than 6 Hours Per Day (ICD-10-PCS; principal; 2025-04-09)
DX: A41.9 Sepsis, unspecified organism (principal); G93.41 Metabolic encephalopathy; N18.6 End stage renal disease; J96.01 Acute respiratory failure with hypoxia; I13.2 Hypertensive heart and chronic kidney disease with heart failure and with stage 5 chronic kidney disease, or end stage renal disease; N39.0 Urinary tract infection, site not specified; I69.351 Hemiplegia and hemiparesis following cerebral infarction affecting right dominant side; E87.1 Hypo-osmolality and hyponatremia; I50.9 Heart failure, unspecified; D64.9 Anemia, unspecified; E03.9 Hypothyroidism, unspecified; E11.22 Type 2 diabetes mellitus with diabetic chronic kidney disease; I48.0 Paroxysmal atrial fibrillation; I25.10 Atherosclerotic heart disease of native coronary artery without angina pectoris; J45.909 Unspecified asthma, uncomplicated; K21.9 Gastro-esophageal reflux disease without esophagitis; Z99.2 Dependence on renal dialysis; Z74.01 Bed confinement status; M62.50 Muscle wasting and atrophy, not elsewhere classified, unspecified site; E78.5 Hyperlipidemia, unspecified; G47.30 Sleep apnea, unspecified; K52.9 Noninfective gastroenteritis and colitis, unspecified; K57.30 Diverticulosis of large intestine without perforation or abscess without bleeding; B96.89 Other specified bacterial agents as the cause of diseases classified elsewhere; Z98.890 Other specified postprocedural states; Z79.51 Long term (current) use of inhaled steroids; Z79.4 Long term (current) use of insulin; Z79.899 Other long term (current) drug therapy; Z79.01 Long term (current) use of anticoagulants; L89.156 Pressure-induced deep tissue damage of sacral region; L98.9 Disorder of the skin and subcutaneous tissue, unspecified; Z86.19 Personal history of other infectious and parasitic diseases; Z93.1 Gastrostomy status; Z93.59 Other cystostomy status; Z79.84 Long term (current) use of oral hypoglycemic drugs; G40.909 Epilepsy, unspecified, not intractable, without status epilepticus; E87.5 Hyperkalemia; Z20.822 Contact with and (suspected) exposure to COVID-19
CPT/HCPCS: 36415; 70450-TC; 71045-TC; 80048-TC; 80053-TC; 80076-TC; 81001; 82962-TC; 83605-TC; 83690-TC; 83735-TC; 84100-TC; 84132-TC; 84153-TC; 84154-TC; 85025-TC; 85027-TC; 85730-TC; 87040-TC; 87081-TC; 87086-TC; 87186-TC; 90935-TC; 93926-TC; 93971-TC; A4216; A4223; G0378; J0612; J0696; J1815; J1938; J2185; J2997; J3480; J7030; J7050; J7060; P9047